=== PATIENT | male | born 1960 | race Caucasian/White ===

== ENCOUNTER → 2024-06-21 | Outpatient (CLI) | payer BC ==
[2024-06-21 13:04] LABS: Appearance,Urine Clear (Clear); Bilirubin,Urine Negative (Negative); Blood,Urine Small (Negative); Color,Urine Light Yellow; Glucose,Urine (UA) Negative (Negative); Ketones,Urine Negative (Negative); Leukocyte Esterase,Urine Small (Negative); Mucus,Urine Rare /hpf; Nitrite,Urine Negative (Negative); Protein,Urine Negative (Negative); RBC,Urine 17 /hpf (0-5); Specific Gravity,Urine 1.016 (1.001-1.035); Squamous Epithelial Cell,Urine 2 /hpf (0-4); Urobilinogen,Urine <2.0 mg/dL (<2.0); WBC,Urine 7 /hpf (0-5)
[2024-06-21 15:18] LABS: Basophils # (A) 0.09 X 10*3/uL (0.00-0.10); Basophils % (A) 1.1 %; Eosinophils # (A) 0.49 X 10*3/uL (0.04-0.35); Eosinophils % (A) 6.2 %; HCT 39.6 % (39.6-50.0); HGB 13.4 g/dL (13.0-17.0); Lymphocytes # (A) 2.66 X 10*3/uL (0.90-5.00); Lymphocytes % (A) 33.6 %; MCH 30.9 pg (27.0-32.0); MCHC 33.8 g/dL (32.0-37.0); MCV 91.2 FL (80.0-97.0); Mean Platelet Volume 8.9 FL (9.5-12.2); Monocytes # (A) 0.58 X 10*3/uL (0.20-1.00); Monocytes % (A) 7.3 %; NRBC Per 100 WBC 0 X 10*3/uL (0.00-0.01); Neutrophils # (A) 4.05 X 10*3/uL (1.80-7.70); Neutrophils % (A) 51.3 %; Platelet Count 366 X 10*3/uL (140-440); RBC 4.34 X 10*6/uL (4.40-5.60); RDW 12.6 % (11.5-14.5); WBC 7.91 X 10*3/uL (4.50-10.00)
[2024-06-21 15:28] LABS: BUN/Creat Ratio 9.44 Ratio (12.00-20.00); Blood Urea Nitrogen 8.5 mg/dL (9.0-27.0); Calcium 9.4 mg/dL (8.7-10.3); Carbon Dioxide 24.6 mmol/L (21.6-31.8); Chloride 106 mmol/L (96-109); Glucose 107 mg/dL (70-110); Potassium 4.3 mmol/L (3.5-5.5); Sodium 141 mmol/L (135-145)
== END | disposition home or self-care (01) ==
LOC: LABPAT 11:37
PROVIDERS: ATTEND Urology
DX: Z01.812 Encounter for preprocedural laboratory examination (principal); N20.0 Calculus of kidney
CPT/HCPCS: 80048; 81001; 85025; 86850; 86900; 86901; 87086

== ENCOUNTER 2024-06-29 07:00 | Day surgery (SDC) | payer BC ==
[2024-06-24 09:59] VITALS: BMI 29.4
--- NOTE | 2024-06-28 10:12 | P.GSHP ---
History of Present Illness H&P Date: 06/28/24 64-year-old gentleman referred via Dr. Kaleb Garcia for a right staghorn calculus. The patient was evaluated and indeed identified with this problem. He was given treatment options including shockwave lithotripsy open surgery referral ureteroscopy or percutaneous nephrostolithotomy the risks and complications of been outlined. He comes for percutaneous nephrostolithotomy on the right side the risks and complications including damage to adjacent organs failure to access the kidney damage to the kidney incomplete stone removal infection bleeding pain to been explained understood and accepted he comes for this procedure. - Constitutional Constitutional: Denies chills, Denies fever - EENT Eyes: denies blurred vision, denies pain Ears, nose, mouth and throat: Denies headache, Denies sore throat - Cardiovascular Cardiovascular: Denies chest pain, Denies shortness of breath - Respiratory Respiratory: Denies cough, Denies 7 - Gastrointestinal Gastrointestinal: Denies abdominal pain, Denies diarrhea, Denies nausea, Denies vomiting - Genitourinary (Female) Genitourinary: Denies dysuria, Denies hematuria - Genitourinary (Male) Genitourinary: Denies dysuria, Denies hematuria - Musculoskeletal Musculoskeletal: Denies myalgias - Integumentary Integumentary: Denies pruritus, Denies rash - Neurological Neurological: Denies numbness, Denies weakness - Psychiatric Psychiatric: Denies anxiety, Denies depression - Endocrine Endocrine: Denies fatigue, Denies weight change Past Medical History Past Medical History: Hypertension, Sleep Apnea/CPAP/BIPAP Additional Past Medical History / Comment(s): Current kidneystone. Hx of episode of dizziness, numbness on right side from top of head to toes, could not feel pain or temperature on that side and elevated BP in Nov 2023, was on 5mg Lisinopril and a water pill, but was recently discontinued; still has numbness of entire right side. CPAP use. History of Any Multi-Drug Resistant Organisms: None Reported Additional Past Surgical History / Comment(s): [place] teeth removed. Additional Past Anesthesia/Blood Transfusion Reaction / Comment(s): Woke up during wisdom teeth extraction in his teens. Smoking Status: Current every day smoker - Past Family History Mother Family Medical History: Cancer Father Family Medical History: Cancer Medications and Allergies Home Medications Medication Instructions Recorded Confirmed Type Aspirin 325 mg PO QAM 06/24/24 06/24/24 History Allergies Allergy/AdvReac Type Severity Reaction Status Date / Time amoxicillin Allergy Dyspnea Verified 06/24/24 09:19 clarithromycin Allergy Dyspnea Verified 06/24/24 09:19 Penicillins Allergy Dyspnea Verified 06/24/24 09:18 Surgical - Exam - General well developed, well nourished, no distress - Eyes normal ocular movement, no icteric - ENT no hearing loss, no congestion - Neck no masses, trachea midline - Respiratory normal respiratory effort, clear to auscultation - Abdomen Abdomen: soft, non tender, no guarding, no rigid, no rebound - Integumentary no rash, no abnormal pigmentation - Neurologic no disoriented, no combative - Psychiatric oriented to time, oriented to person, oriented to place, speech is normal, memory intact Results - Imaging CT scan - abdomen: report reviewed, image reviewed CT scan - pelvis: report reviewed, image reviewed Assessment and Plan Assessment: Impression: Staghorn calculus of right, large, greater than 3 cm Recommendations: Cystoscopy, placement of ureteral catheter, percutaneous nephrostomy, percutaneous nephrostolithotomy right side.
--- NOTE | 2024-06-29 07:29 | XR ---
EXAMINATION TYPE: XR KUB DATE OF EXAM: 06/29/2024 7:18 AM COMPARISON: None CLINICAL INDICATION: Male, 63 years old with history of Right kidney stone.; PHH, pain, preoperative evaluation prior to percutaneous nephrostomy TECHNIQUE: One radiographic view of the abdomen was obtained. FINDINGS: Some external artifacts are present. Vas deferens calcifications on both sides. Large staghorn calcul us on the right measuring 5.1 cm. A few calcifications on the left are much smaller measuring up to 6 mm. Approximately 4 are identified radiographically. Scattered mild stool. Nonobstructive bowel gas pattern. IMPRESSION: 1. Large 5.1 cm staghorn calculus on the right 2. Smaller left-sided nephrolithiasis measuring up to 6 mm. [facility], , 06/29/2024 7:27 AM
[2024-06-29] MEDS: IV FLUID CONTINUATION 1,000 ML IV ONE ×3 (07:44→11:59)
[2024-06-29] MEDS: LACTATED RINGERS 1,000 ML IV SCH (07:55)
[2024-06-29] MEDS: ONDANSETRON 4 MG/2 ML VIAL IVP ONE (07:56)
[2024-06-29] MEDS: DEXAMETHASONE SOD PHOSPHATE 4 MG/ML 1 ML VIAL IV ONE (07:56)
[2024-06-29] MEDS: ceFAZolin 2 GM in DEXTROSE 5% IN WATER 50 ML IVPB PRN (08:28)
[2024-06-29] MEDS: IOHEXOL 350 MG/ML 100 ML in EMPTY BAG 1 BAG IRRIGATION ONE (09:06)
[2024-06-29] MEDS: LACTATED RINGERS 1,000 ML IV ONE (09:22)
[2024-06-29] MEDS ORDERED: NEOSTIGMINE 1 MG/ML 10 ML VIAL ONE (09:23)
[2024-06-29] MEDS ORDERED: WATER FOR INJECTION, STERILE 10 ML VIAL IV ONE (09:23)
[2024-06-29] MEDS ORDERED: ROCURONIUM 10 MG/ML (5 ML VIAL) IV ONE (09:23)
[2024-06-29] MEDS ORDERED: fentaNYL (PF) 50 MCG/ML 2 ML AMP ONE (09:23)
[2024-06-29] MEDS ORDERED: PHENYLEPHRINE-0.9% NACL SYG 1,000 MCG/10 ML SYRINGE ONE (09:23)
[2024-06-29] MEDS ORDERED: ePHEDrine 50 MG/ML 1 ML VIAL ONE (09:23)
[2024-06-29] MEDS ORDERED: MIDAZOLAM 2 MG/2 ML VIAL ONE (09:23)
[2024-06-29] MEDS ORDERED: GLYCOPYRROLATE 0.2 MG/ML 2 ML VIAL ONE (09:23)
[2024-06-29] MEDS ORDERED: LIDOCAINE 4% LTA KIT (4 ML) TOPICAL ONE (09:23)
[2024-06-29] MEDS ORDERED: LIDOCAINE 1% INJ 10MG/ML (20 ML MDV) ONE (09:23)
[2024-06-29] MEDS ORDERED: SUCCINYLCHOLINE CHLORIDE 200 MG/10 ML VIAL IV ONE (09:23)
[2024-06-29] MEDS ORDERED: PROPOFOL 10 MG/ML 20 ML VIAL IV ONE (09:23)
[2024-06-29] MEDS ORDERED: HYDROmorphone (PF) 1 MG/ML ONE (09:23)
[2024-06-29] MEDS ORDERED: ACETAMINOPHEN TAB 325 MG TAB PO PRN (10:59)
[2024-06-29] MEDS ORDERED: NALOXONE 0.4 MG/ML 1 ML VIAL IV PRN (11:01)
--- NOTE | 2024-06-29 11:05 | P.PCN ---
Date of Procedure: 06/29/24 Preoperative Diagnosis: Staghorn calculus right greater than 3 cm Postoperative Diagnosis: Same Procedure(s) Performed: Percutaneous access right kidney Anesthesia: JJ Surgeon: Oleksandr Collins Condition: stable Indications for Procedure: Patient is 63. He has a 5-1/2 cm right renal pelvic stone with multiple satellites. He comes for percutaneous nephrostolithotomy. I will perform percutaneous access to the right kidney Description of Procedure: Patient brought to the operating suite. Given a general anesthetic. He had a cystoscopy and stent placed on the right kidney. He is been placed in the prone position with care Ryan and extremities with a sterile prep. The kidney is seen under fluoroscopy. I injected air through the ureteral catheter to outline the collecting system the only easy access is to an upper pole calyx between the 11th and 12th rib. Appears to be below the lung. A Chiba needle is placed into the upper pole calyx. Through the Chiba needle a [place] mandrel wire is passed into the renal pelvis. Over the wire I then passed a 6 Sammarinese dilating catheter. The inner catheter was removed. The [place] mandrel wire was removed. An 035 wire was passed into the proximal ureter. I advanced the dilating catheter into the proximal ureter. I removed the 035 liver glide and passed an 035 Super Stiff wire down the right ureter. I then over the Super Stiff wire passed an 8 and 10 Sammarinese dilating catheter. The inner catheters removed and I then passed a second wire down the right ureter. Over the Super Stiff wire I then passed the dilating balloon and dilate the collecting system into the upper pole calyx which I advanced a 30 Sammarinese sheath.
--- NOTE | 2024-06-29 11:05 | FL ---
EXAMINATION TYPE: FL Perc Nephrostomy New Access Intraoperative/procedural fluoroscopic services were provided. CLINICAL INDICATION:Male, 63 years old with history of Right Kidney Stone; , [facility] FINDINGS: Fluoroscopic images for right percutaneous nephrostomy. No radiographic evidence for complication. Total fluoroscopy time is 2.13 min. DAP: 20.771 Gycm2 Please see the operative/procedural note for further details. [facility], , 06/29/2024 11:03 AM
--- NOTE | 2024-06-29 11:10 | P.OP ---
Date of Procedure: 06/29/24 Preoperative Diagnosis: Right renal staghorn calculus, greater than 3 cm Postoperative Diagnosis: Same Procedure(s) Performed: Cystoscopy, placement of 5 Bahraini occluding balloon catheter right, percutaneous nephrostomy (Dr. Collins) percutaneous nephrostolithotomy with ultrasound, 12J nephrostomy tube, right Anesthesia: JJ Surgeon: Oleksandr Collins Estimated Blood Loss (ml): 100 Pathology: other (Stone) Condition: stable Disposition: PACU Indications for Procedure: The patient is 63. He has a 5-1/2 cm right renal pelvic stone with calyceal satellites. He comes for a right percutaneous nephrostolithotomy alternatives have been discussed Description of Procedure: Patient brought to the operating suite. He was given a general anesthetic on the transport gurney. Placed in a frog position with a sterile prep and drape. Cystoscopy Foroblique lens and 21 [place]raini sheath identifies a nonobstructing prostate. The right ureteral orifice was identified and intubated with a 5 [place]raini occluding balloon catheter passed up into the right renal pelvis. It was secured to a 16 Bahraini Huerta. The patient is now in prone position with care Ryan and extremities. I performed percutaneous access to the right upper pole. It is dictated separately. He now has a 30 Bahraini sheath in the upper pole calyx. I introduced the rigid nephroscope and remove the clot. The large stone in the renal pelvis is identified. With ultrasound I slowly and tediously ultrasound, fracture and suction the stone out. The larger fragments were removed with grasping forceps. After removal of the stone I then passed the flexible nephroscope throughout the collecting system and remove other small fragments. I passed the scope down the UPJ and identified a couple more stones that are removed. I then fluoroscope the patient and see no remaining stones in the right kidney. 12 Bahraini J nephrostomy tube was placed. It is secured to the skin with 2-0 silk. The right ureteral catheter removed. The patient is awakened and returned recovery in good condition. He will be observed in the hospital postoperatively. A chest x-ray will be obtained since we went through the right upper pole just to make sure we did not caden the pleura. Blood loss was approximately 100 mL.
--- NOTE | 2024-06-29 11:20 | XR ---
EXAMINATION TYPE: XR chest 1V portable DATE OF EXAM: 06/29/2024 11:15 AM COMPARISON: No direct comparisons. TECHNIQUE: XR chest 1V portable Portable AP radiograph of the chest. CLINICAL INDICATION:Male, 63 years old with history of assess right lung for hydro/pneumo thorax s/p pcnl; FINDINGS: Lungs/Pleura: There is no evidence of pleural effusion, focal consolidation, or pneumothorax. Pulmonary vascularity: Mild pulmonary vascular congestion. Heart/mediastinum: Cardiomediastinal silhouette is enlarged. Atherosclerotic calcifications are seen in the aorta. Musculoskeletal: No acute osseous pathology. Other findings: Drainage catheter identified within the right upper quadrant related to known percuta neous nephrostomy tube. IMPRESSION: 1. Cardiomegaly and mild pulmonary vascular congestion. Correlate with BNP for congestive heart fail ure/volume overload. 2. No discrete pneumothorax. [facility], , 06/29/2024 11:17 AM
[2024-06-29] MEDS: HYDROmorphone 0.5 MG/0.5 ML SYRINGE IVP PRN (11:37)
[2024-06-29] MEDS: IPRATROPIUM-ALBUTEROL 3 ML NEB INHALATION PRN (11:39)
[2024-06-29] MEDS: DEXTROSE 5%-0.45% NACL 1,000 ML IV SCH (13:37)
[2024-06-29] MEDS: HYDROmorphone PCA 10 MG/50 ML BAG IV PRN (14:59)
[2024-06-29] MEDS: NICOTINE 21MG/24HR PATCH TRANSDERM SCH (15:53)
[2024-06-29] MEDS: ONDANSETRON 4 MG/2 ML VIAL IVP PRN (19:50)
--- NOTE | 2024-06-29 20:35 | XR ---
EXAMINATION TYPE: XR chest 1V portable DATE OF EXAM: 06/29/2024 8:20 PM COMPARISON: Chest radiographs from 06/29/2024. CLINICAL INDICATION: Male, 63 years old with history of SOB; TECHNIQUE: XR chest 1V portable Frontal view of the chest. FINDINGS: Lungs/Pleura: There may be trace right pneumothorax. There is no evidence of pleural effusion, focal consolidation, or left pneumothorax. Pulmonary vascularity: Unremarkable. Heart/mediastinum: Cardiomediastinal silhouette is unremarkable. Musculoskeletal: No acute osseous pathology. IMPRESSION: Visceral pleural line on the right thought to be present. Findings suggest trace right pneumothorax. Consider CT chest or expiratory left lateral decubitus views for confirmation. [facility], , 06/29/2024 8:33 PM
--- NOTE | 2024-06-29 21:58 | XR ---
EXAMINATION TYPE: XR chest 1V DATE OF EXAM: 06/29/2024 9:44 PM COMPARISON: Chest radiographs from 06/29/2024. CLINICAL INDICATION: Male, 63 years old with history of Pneumothoarax; TECHNIQUE: XR chest 1V Frontal view of the chest. FINDINGS: Lungs/Pleura: Visceral pleural line confirmed on the right. There is no evidence of pleural effusion, focal consolidation, or left pneumothorax. Pulmonary vascularity: Unremarkable. Heart/mediastinum: Cardiomediastinal silhouette is unremarkable. Musculoskeletal: No acute osseous pathology. Other findings: None IMPRESSION: Trace right pneumothorax confirmed. [facility], , 06/29/2024 9:56 PM
[2024-06-29] MEDS: ALPRAZolam 0.25 MG TAB PO STA (23:03)
[2024-06-30] MEDS: MAG HYDROX/AL HYDROX/SIMETH 30 ML CUP PO PRN (01:26)
[2024-06-30] MEDS ORDERED: HYDROmorphone 2 MG/ML 1 ML SYRINGE IVP PRN (07:55)
[2024-06-30] MEDS: HYDROcodone/APAP 5-325MG 1 EACH TAB PO PRN (08:35)
--- NOTE | 2024-06-30 11:57 | P.PN ---
Subjective Progress Note Date: 06/30/24 Chest x-ray showed trace pneumothorax, he is maintaining his saturation, is having pain with inspiration and some shortness of breath. Of note he was previously on Lasix, but recently discontinued it Objective - Vital Signs Vital signs: Vital Signs Temp 97.4 F L 06/30/24 07:42 Pulse 101 H 06/30/24 07:42 Resp 14 06/30/24 02:00 BP 136/71 06/30/24 07:42 Pulse Ox 93 L 06/30/24 07:42 FiO2 Intake & Output 06/29/24 06/30/24 06/30/24 18:59 06:59 18:59 Intake Total 2551 1620 600 Output Total 950 1400 700 Balance 1601 220 -100 Weight 93 kg Intake: IV 2051 Intake, IV Titration 500 600 Amount Dextrose 5%-0.45% NaCl 1, 600 000 ml @ 100 mls/hr IV . Q10H [facility] Rx#:[id number] IV Fluid Continuation 1, 500 000 ml @ 0 mls/hr IV .[facility] Rx#:[id number] Oral 1620 Output: Drainage 400 1000 Right Back 400 1000 Urine 400 400 700 Uretheral (Huerta) 350 Estimated Blood Loss 150 Other: Voiding Method Indwelling Catheter Indwelling Catheter Indwelling Catheter - Constitutional General appearance: Present: no acute distress - Gastrointestinal General gastrointestinal: Present: soft. Absent: distended, tenderness Assessment and Plan Assessment: 63-year-old male status post right PCNL by Dr. Collins, is having postoperative pain, chest x-ray showing trace pneumothorax. Will consult the hospitalist for medical management Repeat chest x-ray, if there is progression of the pneumothorax then we will obtain a pulmonary consult Will discontinue the [employer] and switch to IV, p.o. pain medications Huerta will be removed
--- NOTE | 2024-06-30 12:45 | XR ---
EXAMINATION TYPE: XR chest 2V DATE OF EXAM: 06/30/2024 12:36 PM COMPARISON: Chest radiographs from 06/29/2024 TECHNIQUE: XR chest 2V Frontal and lateral views of the chest. CLINICAL INDICATION:Male, 63 years old with history of Pneumothorax; FINDINGS: Lungs/Pleura: No focal consolidation. Small right pleural effusion. No sizable pneumothorax identifie d. Pulmonary vascularity: Unremarkable. Heart/mediastinum: Cardiomediastinal silhouette is unremarkable. Musculoskeletal: No acute osseous pathology. Other findings: None Lines/Tubes: Right percutaneous nephrostomy tube redemonstrated. IMPRESSION: 1. No sizable pneumothorax identified. 2. Small right pleural effusion. [facility], , 06/30/2024 12:43 PM
--- NOTE | 2024-06-30 16:45 | P.CONS ---
History of Present Illness - Reason for Consult Consult date: 06/30/24 - History of Present Illness 63 year old M with PMH of right staghorn calculi, 80 pack year smoking history presents [facility] for elective surgery. He underwent percutaneous access of the right kidney, cystoscopy, percutaneous nephrostomy, percutaneous nephrostolithotomy with ultrasound and placement of a nephrostomy tube under general anesthesia with Dr. Collins on 06/29. His hospital course was complicated with pleuritic chest pain and shortness of breath that developed post-operatively. CXR done on 06/29 at 20:35 showed trace right PTX. [facility] Phys[facility] consulted for medical management of this patient. 06/30 Patient was seen and examined. He reports improvement in his pleuritic chest pain. He is currently 94% on RA. No labs are done today. CXR done today shows no PTX. General: no distress Derm: warm, dry Head: atraumatic, normocephalic, symmetric Mouth: no lip lesion, mucus membranes moist Cardiovascular: S1S2 tachy, no murmur Lungs: Decreased BS bilaterally, no rales, no accessory muscle use Ext: no gross muscle atrophy, no edema, no contractures Neuro: No focal neurologic deficits. Psych: Alert and oriented. Based on my assessment of this patient, this patient meets a high complexity level of care. Pneumothorax: Likely barotrauma from general anesthesia with history of COPD. CXR done today shows no sizable PTX. Telemetry monitoring. Supplemental O2 to maintain O2 sat > 92%. DC incentive spirometer for now. Repeat CXR in the AM. Consult Pulmonary. History of COPD: Not in acute exacerbation. DuoNeb PRN SOB/wheezing. Nicotine dependence: Nicotine patch 21 mg/24H TRANSDERM daily. Advised to quit. CODE STATUS: FULL CODE. DVT Prophylaxis: SCD GI Prophylaxis: Designated medical POA if patient is not able to make medical decisions for themselves: I have reviewed the following sql server consultant notes: Urology note. I have reviewed the results of the following tests: I have ordered the following tests: CXR, CBC, CMP in the AM. I have discussed the care of this patient with the following independent historian: . I have independently interpreted the following test below: CXR. I have discussed the management of this patient with the following physician: Past Medical History Past Medical History: Hypertension, Sleep Apnea/CPAP/BIPAP Additional Past Medical History / Comment(s): Current kidneystone. Hx of episode of dizziness, numbness on right side from top of head to toes, could not feel pain or temperature on that side and elevated BP in Nov 2023, was on 5mg Lisinopril and a water pill, but was recently discontinued; still has numbness of entire right side. CPAP use. History of Any Multi-Drug Resistant Organisms: None Reported Additional Past Surgical History / Comment(s): [place] teeth removed. Additional Past Anesthesia/Blood Transfusion Reaction / Comm: Woke up during wisdom teeth extraction in his teens. Smoking Status: Current every day smoker - Past Family History Mother Family Medical History: Cancer Father Family Medical History: Cancer Medications and Allergies Home Medications Medication Instructions Recorded Confirmed Type Aspirin 325 mg PO QAM 06/24/24 06/29/24 History Allergies Allergy/AdvReac Type Severity Reaction Status Date / Time amoxicillin Allergy Dyspnea Verified 06/29/24 07:25 clarithromycin Allergy Dyspnea Verified 06/29/24 07:25 Penicillins Allergy Dyspnea Verified 06/29/24 07:25 Physical Exam Vitals: Vital Signs Temp Pulse Resp BP BP Pulse Ox 06/30/24 13:25 98.6 F 107 H 109/70 94 L 06/30/24 07:42 97.4 F L 101 H 136/71 93 L 06/30/24 02:00 97.7 F 92 14 156/79 156/79 93 L 06/29/24 22:45 133/83 93 L 06/29/24 20:00 97.5 F L 80 12 134/78 95 Intake and Output 06/30/24 06/30/24 06/30/24 06:59 14:59 22:59 Intake Total 1620 840 Output Total 1400 900 Balance 220 -60 Intake: Intake, IV Titration 600 Amount Dextrose 5%-0.45% NaCl 1, 600 000 ml @ 100 mls/hr IV . Q10H [facility] Rx#:[id number] Oral 1620 240 Output: Drainage 1000 200 Right Back 1000 200 Urine 400 700 Uretheral (Huerta) 350 Other: Voiding Method Indwelling Catheter
[2024-06-30] MEDS: ALPRAZolam 0.5 MG TAB PO PRN (21:49)
[2024-07-01] MEDS: MELATONIN 5 MG TABLET PO PRN (03:05)
[2024-07-01 07:35] VITALS: BP 127/77; PULSE 83; RESP 12; TEMP 98
--- NOTE | 2024-07-01 08:02 | XR ---
EXAMINATION TYPE: XR chest 1V portable DATE OF EXAM: 07/01/2024 7:08 AM COMPARISON: Chest radiographs from 06/30/2024 TECHNIQUE: XR chest 1V portable Portable AP radiograph of the chest. CLINICAL INDICATION:Male, 63 years old with history of PTX; FINDINGS: Lungs/Pleura: No sizable pleural effusion. No focal consolidation. Trace right apical pneumothorax Pulmonary vascularity: Unremarkable. Heart/mediastinum: Cardiomediastinal silhouette is unremarkable. Atherosclerotic calcifications are seen in the aorta. Musculoskeletal: No acute osseous pathology. Other findings: None Lines/Tubes: Right percutaneous nephrostomy tube redemonstrated. IMPRESSION: Trace apical pneumothorax. [facility], , 07/01/2024 8:00 AM
[2024-07-01 08:16] LABS: HCT 34.5 % (39.6-50.0); HGB 11.4 g/dL (13.0-17.0); MCH 31.2 pg (27.0-32.0); MCV 94.5 FL (80.0-97.0); NRBC Per 100 WBC 0 X 10*3/uL (0.00-0.01); Platelet Count 289 X 10*3/uL (140-440); RBC 3.65 X 10*6/uL (4.40-5.60); RDW 13.4 % (11.5-14.5); WBC 13.44 X 10*3/uL (4.50-10.00)
[2024-07-01 08:29] LABS: BUN/Creat Ratio 14.57 Ratio (12.00-20.00); Blood Urea Nitrogen 10.2 mg/dL (9.0-27.0); Glucose 118 mg/dL (70-110)
[2024-07-01 08:30] LABS: ALT 27 U/L (10-49); AST 24 U/L (14-35); Albumin 3.9 g/dL (3.8-4.9); Albumin/Globulin Ratio 1.62 Ratio (1.60-3.17); Alkaline Phosphatase 71 U/L (41-126); Calcium 8.6 mg/dL (8.7-10.3); Carbon Dioxide 23.7 mmol/L (21.6-31.8); Chloride 103 mmol/L (96-109); Globulin 2.4 g/dL (1.6-3.3); Potassium 3.9 mmol/L (3.5-5.5); Sodium 136 mmol/L (135-145); Total Bilirubin 0.5 mg/dL (0.3-1.2); Total Protein 6.3 g/dL (6.2-8.2)
--- NOTE | 2024-07-01 11:45 | P.CNPUL ---
History of Present Illness Consult date: 07/01/24 Requesting physician: Oleksandr Collins Reason for consult: pneumothorax, abnormal CXR/CT Chief complaint: Right staghorn calculus History of present illness: This is a 63-year-old male patient with a known history of hypertension, obstructive sleep apnea maintained on CPAP chronic tobacco dependence who was found to have a right staghorn calculus and was referred to Dr. Collins. He was brought in on 06/29/2024 for a cystoscopy, placement of a 5 [place] occluding balloon catheter right, percutaneous nephrostomy, percutaneous nephrostolilithotomy with ultrasound on the right. 12J nephrostomy tube placement. Follow-up chest x-ray revealed a tiny right apical pneumothorax and we are consulted for the same. Today's chest x-ray shows a trace apical pneumothorax. Right percutaneous nephrostomy tube in place. White count 13.4. Hemoglobin 11.4. Platelets 289. Sodium 136. Potassium 3.9. Bicarb 24. BUN 10. Creatinine 0.7. Glucose 118. He is seen today in consultation on the regular medical floor. He is sitting up in a chair having breakfast. He denies any shortness of breath, cough or congestion. No fever or chills. He is maintaining good O2 saturations in the 90s on room air. He has been afebrile. Hemodynamically stable. Review of Systems REVIEW OF SYSTEMS: CONSTITUTIONAL: Denies any recent significant weight loss or weight gain. EYES: Denies change in vision. EARS, NOSE, MOUTH, THROAT: Denies headaches, denies sore throat. CARDIOVASCULAR: Denies chest pain, palpitations or syncopal episodes. RESPIRATORY: Denies shortness of breath, cough, congestion or hemoptysis. GASTROINTESTINAL: Denies change in appetite, denies abdominal pain GENITOURINARY: Denies hematuria, denies infections. MUSKULOSKELETAL: Denies pain, denies swelling. INTEGUMENTARY: Denies rash, denies eczema. NEUROLOGICAL: Denies recent memory loss, no recent seizure activity. PSYCHIATRIC: Denies anxiety, denies depression. HEMATOLOGIC/LYMPHATIC: Denies anemia, denies enlarged lymph nodes. Past Medical History Past Medical History: Hypertension, Sleep Apnea/CPAP/BIPAP Additional Past Medical History / Comment(s): Current kidneystone. Hx of episode of dizziness, numbness on right side from top of head to toes, could not feel pain or temperature on that side and elevated BP in Nov 2023, was on 5mg Lisinopril and a water pill, but was recently discontinued; still has numbness of entire right side. CPAP use. History of Any Multi-Drug Resistant Organisms: None Reported Additional Past Surgical History / Comment(s): [place] teeth removed. Additional Past Anesthesia/Blood Transfusion Reaction / Comment(s): Woke up during wisdom teeth extraction in his teens. Smoking Status: Current every day smoker - Past Family History Mother Family Medical History: Cancer Father Family Medical History: Cancer Medications and Allergies Home Medications Medication Instructions Recorded Confirmed Type Aspirin 325 mg PO QAM 06/24/24 06/29/24 History ALPRAZolam [Xanax] 0.5 mg PO HS PRN #7 tab 07/01/24 Rx HYDROcodone/APAP 5-325MG [[place] 1 tab PO Q4HR PRN 3 Days #18 tab 07/01/24 Rx 5-325] Allergies Allergy/AdvReac Type Severity Reaction Status Date / Time amoxicillin Allergy Dyspnea Verified 06/29/24 07:25 clarithromycin Allergy Dyspnea Verified 06/29/24 07:25 Penicillins Allergy Dyspnea Verified 06/29/24 07:25 Physical Exam Vitals: Vital Signs Temp Pulse Resp BP BP Pulse Ox 07/01/24 07:33 98.0 F 83 12 127/77 94 L 07/01/24 01:41 98.5 F 96 14 123/78 93 L 06/30/24 19:54 98.1 F 111 H 12 130/77 93 L 06/30/24 13:25 98.6 F 107 H 109/70 94 L Intake and Output 06/30/24 07/01/24 07/01/24 22:59 06:59 14:59 Intake Total 1780 1080 Output Total 950 300 Balance 830 780 Intake: Intake, IV Titration 1200 Amount Dextrose 5%-0.45% NaCl 1, 1200 000 ml @ 100 mls/hr IV . Q10H [facility] Rx#:[id number] Oral 580 1080 Output: Drainage 450 300 Right Back 450 300 Urine 500 Other: Voiding Method Urinal Urinal # Voids 1 GENERAL EXAM: Alert, active, 63-year-old male, on room air oxygen, comfortable in no apparent distress. HEAD: Normocephalic. EYES: Normal reaction of pupils, equal size. NOSE: Clear with pink turbinates. THROAT: No erythema or exudates. NECK: No masses, no JVD. CHEST: No chest wall deformity. Right nephrostomy tube secured in place LUNGS: Equal air entry with no crackles, wheeze, rhonchi or dullness. CVS: S1 and S2 normal with no audible murmur, regular rhythm. ABDOMEN: No hepatosplenomegaly, normal bowel sounds, no guarding or rigidity. SPINE: No scoliosis or deformity SKIN: No rashes CENTRAL NERVOUS SYSTEM: No focal deficits, tone is normal in all 4 extremities. EXTREMITIES: There is no peripheral edema. No clubbing, no cyanosis. Peripheral pulses are intact. Results - Laboratory Findings CBC and BMP: 07/01/24 04:34 07/01/24 04:34 Abnormal lab findings: Abnormal Labs 07/01/24 07/01/24 04:34 04:34 WBC 13.44 H RBC 3.65 L Hgb 11.4 L Hct 34.5 L MPV 9.0 L Glucose 118 H Calcium 8.6 L - Diagnostic Findings Chest x-ray: image reviewed Assessment and Plan Assessment: Right renal staghorn calculus greater than 30 cm. Status post percutaneous nephrostomy, percutaneous nephro slowly lithotomy with ultrasound, 12J percutaneous nephrostomy tube placement, postoperative day #2 Tiny right apical pneumothorax, iatrogenic Chronic and ongoing tobacco dependence Chronic obstructive pulmonary disease Obstructive sleep apnea maintained on CPAP Hypertension Plan: The patient was seen and evaluated Chest x-rays, labs and medications reviewed Tiny right apical pneumothorax Stable and on room air oxygen Educated regarding complete smoking cessation Cleared for discharge from the pulmonary standpoint Follow-up closely with his program manager rn in the [place] area Avoid utilizing his CPAP until seen in follow-up Plan of care discussed with the patient and his who is present I have personally seen and examined the patient, performed the documentation and the assessment and plan as written. Number of minutes spent on the visit: 20 Dictation was produced using [employer] dictation software. Please excuse any grammatical, word or spelling errors. Time with Patient: Greater than 30
--- NOTE | 2024-07-01 12:07 | P.PN ---
Subjective Progress Note Date: 07/01/24 63 year old M with PMH of right staghorn calculi, 80 pack year smoking history presents to [facility] for elective surgery. He underwent percutaneous access of the right kidney, cystoscopy, percutaneous nephrostomy, percutaneous nephrostolithotomy with ultrasound and placement of a nephrostomy tube under general anesthesia with Dr. Collins on 06/29. His hospital course was complicated with pleuritic chest pain and shortness of breath that developed post-operatively. CXR done on 06/29 at 20:35 showed trace right PTX. [facility] consulted for medical management of this patient. 06/30 Patient was seen and examined. He reports improvement in his pleuritic chest pain. He is currently 94% on RA. No labs are done today. CXR done today shows no PTX. 07/01 Patient was seen and examined. Chest pain resolved. Abdominal pain from surgery improving. He is 94% on RA. Pulmonary recommends outpatient follow up. CXR done today shows small apical PTX. CBC and CMP significant for WBC 13.44, RBC 3.65, Hg 11.4, Hct 34.5, glu 118, Ca 8.6. General: no distress Derm: warm, dry Head: atraumatic, normocephalic, symmetric Mouth: no lip lesion, mucus membranes moist Cardiovascular: S1S2 reg, no murmur Lungs: Decreased BS bilaterally, no rales, no accessory muscle use Ext: no gross muscle atrophy, no edema, no contractures Neuro: No focal neurologic deficits. Psych: Alert and oriented. Based on my assessment of this patient, this patient meets a high complexity level of care. Pneumothorax: Likely barotrauma from general anesthesia with history of COPD. CXR done today shows no small apical PTX. Telemetry monitoring. Supplemental O2 to maintain O2 sat > 92%. DC incentive spirometer. Pulmonary on board. History of COPD: Not in acute exacerbation. DuoNeb PRN SOB/wheezing. Nicotine dependence: Nicotine patch 21 mg/24H TRANSDERM daily. Advised to quit. CODE STATUS: FULL CODE. DVT Prophylaxis: SCD GI Prophylaxis: Designated medical POA if patient is not able to make medical decisions for themselves: I have reviewed the following hr shared services consultant notes: Pulmonary note. I have reviewed the results of the following tests: CBC, CMP. I have ordered the following tests: I have discussed the care of this patient with the following independent historian: . RN. I have independently interpreted the following test below: CXR. I have discussed the management of this patient with the following physician: Objective - Vital Signs Vital signs: Vital Signs Temp 98.0 F 07/01/24 07:33 Pulse 83 07/01/24 07:33 Resp 12 07/01/24 07:33 BP 127/77 07/01/24 07:33 Pulse Ox 94 L 07/01/24 07:33 FiO2 Intake & Output 06/30/24 07/01/24 07/01/24 18:59 06:59 18:59 Intake Total 2620 1080 Output Total 900 1250 Balance 1720 -170 Intake: Intake, IV Titration 1800 Amount Dextrose 5%-0.45% NaCl 1, 1800 000 ml @ 100 mls/hr IV . Q10H [facility] Rx#:[id number] Oral 820 1080 Output: Drainage 200 750 Right Back 200 750 Urine 700 500 Uretheral (Huerta) 350 Other: Voiding Method Indwelling Catheter Urinal Urinal # Voids 1 - Labs CBC & Chem 7: 07/01/24 04:34 07/01/24 04:34 Labs: Abnormal Lab Results - Last 24 Hours (Table) 07/01/24 07/01/24 Range/Units 04:34 04:34 WBC 13.44 H (4.50-10.00) X 10*3/uL RBC 3.65 L (4.40-5.60) X 10*6/uL Hgb 11.4 L (13.0-17.0) g/dL Hct 34.5 L (39.6-50.0) % MPV 9.0 L (9.5-12.2) FL Glucose 118 H (70-110) mg/dL Calcium 8.6 L (8.7-10.3) mg/dL
--- NOTE | 2024-07-01 21:48 | P.DS ---
Providers Attending physician: Oleksandr Collins Consults: 06/30/24 07:55 Consult Physician Routine Consulting Provider: Annalisa Waterman Consult Reason/Comments: medical management Do you want consulting provider notified?: Yes 06/30/24 14:09 Consult Physician Routine Consulting Provider: Vince Hanna Consult Reason/Comments: PTX seen on 06/29 CXR Do you want consulting provider notified?: Yes Primary care physician: Stated None Hospital Course: This is a 63-year-old male with history of right-sided renal stone, status post right PCNL by Dr. Reyes, please see op note dated 06/29 for surgery details. Patient developed shortness of breath on postop day #0, chest x-ray was obtained which showed evidence of a small pneumothorax, subsequent follow-up x-ray showed no evidence of pneumothorax, on postop day #2 there was complete resolution of the pneumothorax. Pulmonary services was consulted which recommended no further intervention for these findings. Patient was discharged home with the nephrostomy tube and postop day #2, at time of discharge he was tolerating a diet, ambulating, pain was controlled Plan - Discharge Summary Discharge Rx Participant: Yes New Discharge Prescriptions: New HYDROcodone/APAP 5-325MG [[place] 5-325] 1 tab PO Q4HR PRN 3 Days #18 tab PRN Reason: Pain ALPRAZolam [Xanax] 0.5 mg PO HS PRN #7 tab PRN Reason: Anxiety No Action Aspirin 325 mg PO QAM Discharge Medication List Aspirin 325 mg PO QAM 06/24/24 [History] ALPRAZolam [Xanax] 0.5 mg PO HS PRN #7 tab 07/01/24 [Rx] HYDROcodone/APAP 5-325MG [[place] 5-325] 1 tab PO Q4HR PRN 3 Days #18 tab 07/01/24 [Rx] Follow up Appointment(s)/Referral(s): Oleskandr Collins MD [STAFF PHYSICIAN] - 07/04/24 9:40 am Patient Instructions/Handouts: Hydrocodone/Acetaminophen (By mouth), Alprazolam (By mouth), How to Stop Smoking (DC), Kidney Stones (DC), Nephrostomy Tube Care (DC) Activity/Diet/Wound Care/Special Instructions: Stop Smoking Increase ambulation as tolerated Patient to keep surgical dressing intact until follow-up with Dr. Collins on Thursday. Patient encouraged to follow-up with his Pulmonary(Lung)doctor following discharge. Discharge Disposition: HOME SELF-CARE
== END 2024-07-01 11:23 | disposition home or self-care (01) ==
LOC: OR 07:00 → 5NMEDONC 11:02 → OR 07-01 11:23
PROVIDERS: ATTEND Urology
DX: N20.0 Calculus of kidney (principal); J44.9 Chronic obstructive pulmonary disease, unspecified; I50.9 Heart failure, unspecified; I11.0 Hypertensive heart disease with heart failure; G47.33 Obstructive sleep apnea (adult) (pediatric); Z88.0 Allergy status to penicillin; Z79.82 Long term (current) use of aspirin
CPT/HCPCS: 80053; 85027; 82365; 50432; 71045 ×2; 71046; 74018; 52005; 50081; C1769 ×3; C2628; C1729 ×2; C1894; S4990; J1100; J0690; J2405; Q9967; J1171 ×2

== ENCOUNTER 2024-07-04 10:28 | Inpatient (IN) | payer BC ==
[2024-07-04] MEDS: HYDROmorphone 1 MG/ML 1 ML SYRINGE IVP STA (11:21)
--- NOTE | 2024-07-04 11:28 | XR ---
EXAMINATION TYPE: XR chest 2V DATE OF EXAM: 07/04/2024 11:04 AM COMPARISON: Chest radiographs from 07/01/2024 CLINICAL INDICATION: Male, 63 years old with history of Shortness of breath; [facility] TECHNIQUE: XR chest 2V Frontal and lateral views of the chest. FINDINGS: Lungs/Pleura: Low lung volumes are present. There is no evidence of pleural effusion, focal consolida tion, or pneumothorax. Pulmonary vascularity: Unremarkable. Heart/mediastinum: Cardiomediastinal silhouette is unremarkable. Musculoskeletal: No acute osseous pathology. IMPRESSION: Low lung volumes with a generalized hazy appearance which could represent atelectasis versus pulmonar y edema correlate with serum BNP. [facility], , 07/04/2024 11:25 AM
[2024-07-04 11:36] LABS: Basophils # (A) 0.11 10*3/uL (0.00-0.10); Eosinophils # (A) 0.73 10*3/uL (0.04-0.35); Eosinophils % (A) 6.9 %; HCT 37.7 % (39.6-50.0); HGB 13.2 g/dL (13.0-17.0); Lymphocytes # (A) 2.85 10*3/uL (0.90-5.00); Lymphocytes % (A) 26.9 %; MCH 31.5 pg (27.0-32.0); Mean Platelet Volume 8.5 fL (9.5-12.2); Monocytes # (A) 1.11 10*3/uL (0.20-1.00); Monocytes % (A) 10.5 %; Neutrophils # (A) 5.74 10*3/uL (1.80-7.70); Neutrophils % (A) 54.2 %; Platelet Count 427 10*3/uL (140-440); RBC 4.19 10*6/uL (4.40-5.60); RDW 12.6 % (11.5-14.5); WBC 10.59 10*3/uL (4.50-10.00)
[2024-07-04 11:38] LABS: ALT 26 U/L (4-49); AST 24 U/L (17-59); African American GFR (CKD) >90 (>60 ml/min/1.73 sqM); Albumin 4.2 g/dL (3.5-5.0); Alkaline Phosphatase 61 U/L (38-126); Anion Gap 10 mmol/L; Blood Urea Nitrogen 12 mg/dL (9-20); Calcium 9.7 mg/dL (8.4-10.2); Carbon Dioxide 27 mmol/L (22-30); Chloride 104 mmol/L (98-107); Glucose 86 mg/dL (74-99); Non-African American GFR(CKD) >90 (>60 ml/min/1.73 sqM); Potassium 4.3 mmol/L (3.5-5.1); Sodium 141 mmol/L (137-145); Total Bilirubin 0.6 mg/dL (0.2-1.3); Total Protein 7.1 g/dL (6.3-8.2)
[2024-07-04 11:45] LABS: INR 0.8 (<1.2); Partial Thromboplastin Time 24.6 sec (22.0-30.0); Prothrombin Time 9.7 sec (10.0-12.5)
[2024-07-04] MEDS: HYDROmorphone 0.5 MG/0.5 ML SYRINGE IVP STA (12:12)
--- NOTE | 2024-07-04 12:26 | CT ---
EXAMINATION TYPE: CT chest wo con DATE OF EXAM: 07/04/2024 11:59 AM COMPARISON: Chest radiograph from same day. CLINICAL INDICATION: Male, 63 years old with history of SOB pneumothorax, recent nephrostomy; PHH, r ecent nephrostomy, sob, pneumothorax TECHNIQUE: Multiple axial images were obtained through the chest. Sagittal and coronal reformats were created for review. MIP was performed on a separate workstation. Contrast used: mL of (None if empty) Oral contrast used: (None if empty) CT DLP: 351.8 mGycm, Automated exposure control for dose reduction was used. FINDINGS: LUNGS/ PLEURA: Right lower lobe airspace opacities superimposed on streaky atelectasis. Few scattered scattered groundglass opacities there are seen throughout the lungs similar peripheral-based. Trace right pleural effusion and a left pleural effusion. No pneumothorax. AIRWAY: Patent and unremarkable. HEART: Size within normal limits. Moderate coronary artery calcifications present. MEDIASTINUM: No gross evidence of adenopathy. VASCULATURE: No aortic aneurysm. MUSCULOSKELETAL: Moderate disc degeneration changes are present throughout the thoracolumbar spine se condary to osteophyte formation and facet joint arthropathy. SOFT TISSUES/LYMPH NODES: Unremarkable. LOWER NECK: No significant findings. UPPER ABDOMEN: 3 mm nonobstructing right renal calculus. IMPRESSION: 1. Right basilar atelectasis with airspace opacities correlate for superimposed infection. Correlate for aspiration. 2. Trace right pleural effusion. 3. Scattered groundglass opacities at the lungs correlate for atypical pneumonia. Correlate with ser um BNP to exclude underlying pulmonary vascular congestion. 4. No evidence for pneumothorax. Follow up recommendations for incidental pulmonary nodules, if there are any, are per [employer] [employer] or [employer]. https://radiopaedia.org/articles/ngkkqtezgk-gesxkdo-ilapalcza-gsrxwl-[email or web address]?lang=us [facility], , 07/04/2024 12:24 PM
--- NOTE | 2024-07-04 13:12 | ED ---
General Adult HPI - General Chief complaint: Shortness of Breath Stated complaint: SOB Time Seen by Provider: 07/04/24 10:32 Source: patient, RN notes reviewed Mode of arrival: ambulatory Limitations: no limitations - History of Present Illness Initial comments: 63-year-old male presents emergency department from urology's office chief complaint of flank pain, dyspnea. Patient had staghorn calculus with percutaneous nephrostomy tube that was removed today patient did have recent small pneumothorax from this procedure but was resolving. After nephrostomy tube was removed patient had discomfort and dyspnea. Patient was sent over for evaluation. Patient does have a history of COPD continues to smoke. Patient has pain with deep inspiration denies any abdominal complaints. Patient states that he was on Luttrell states that he did take Luttrell today. - Related Data Home Medications Medication Instructions Recorded Confirmed Aspirin 325 mg PO QAM 06/24/24 06/29/24 Previous Rx's Medication Instructions Recorded ALPRAZolam [Xanax] 0.5 mg PO HS PRN #7 tab 07/01/24 HYDROcodone/APAP 5-325MG [[place] 1 tab PO Q4HR PRN 3 Days #18 tab 07/01/24 5-325] Ketorolac [Toradol] 10 mg PO Q8HR #15 tab 07/04/24 Allergies Allergy/AdvReac Type Severity Reaction Status Date / Time amoxicillin Allergy Dyspnea Verified 07/04/24 10:34 clarithromycin Allergy Dyspnea Verified 07/04/24 10:34 Penicillins Allergy Dyspnea Verified 07/04/24 10:34 Review of Systems ROS Statement: Those systems with pertinent positive or pertinent negative responses have been documented in the HPI. ROS Other: All systems not noted in ROS Statement are negative. Past Medical History Past Medical History: COPD Additional Past Medical History / Comment(s): Kidney stone History of Any Multi-Drug Resistant Organisms: None Reported Additional Past Surgical History / Comment(s): Kidney stones. Past Psychological History: No Psychological Hx Reported Smoking Status: Current every day smoker Past Alcohol Use History: None Reported Past Drug Use History: None Reported General Exam Limitations: no limitations General appearance: alert, in no apparent distress Head exam: Present: atraumatic, normocephalic, normal inspection Eye exam: Present: normal appearance, PERRL, EOMI. Absent: scleral icterus, conjunctival injection, periorbital swelling ENT exam: Present: normal exam, mucous membranes moist Neck exam: Present: normal inspection. Absent: tenderness, meningismus, lymphadenopathy Respiratory exam: Present: wheezes, decreased breath sounds. Absent: normal lung sounds bilaterally, respiratory distress, rales, rhonchi, stridor Cardiovascular Exam: Present: regular rate, normal rhythm, normal heart sounds. Absent: systolic murmur, diastolic murmur, rubs, gallop, clicks GI/Abdominal exam: Present: soft, normal bowel sounds. Absent: distended, tenderness, guarding, rebound, rigid Back exam: Present: tenderness, CVA tenderness (R). Absent: CVA tenderness (L) Course Vital Signs 07/04/24 07/04/24 07/04/24 10:32 11:11 12:11 Temperature 97.8 F Pulse Rate 79 82 78 Respiratory 20 26 H 22 Rate Blood Pressure 169/95 175/108 158/86 O2 Sat by Pulse 92 L 97 97 Oximetry 07/04/24 07/04/24 13:06 13:23 Temperature Pulse Rate 87 108 H Respiratory 20 26 H Rate Blood Pressure 135/96 O2 Sat by Pulse 97 76 L Oximetry EKG Findings - EKG Comments: EKG Findings:: . EKG performed at 10: 44 sinus rhythm rate of 88 NE 170 QRS 79 QT/QTc 335/375 - EKG Results: EKG: interpreted by ERICK Medical Decision Making - Medical Decision Making Was pt. sent in by a medical professional or institution (, PA, SOFTWARE SUPPORT TECHNICIAN, urgent care, hospital, or care home...) When possible be specific @ -Dr. headley urology Did you speak to anyone other than the patient for history (EMS, parent, family, police, friend...)? What history was obtained from this source @ -No Did you review nursing and triage notes (agree or disagree)? Why? @ -I reviewed and agree with nursing and triage notes Were old charts reviewed (outside hosp., previous admission, EMS record, old EKG, old radiological studies, urgent care reports/EKG's, care home records)? Report findings @ -No old charts were reviewed Differential Diagnosis (chest pain, altered mental status, abdominal pain women, abdominal pain men, vaginal bleeding, weakness, fever, dyspnea, syncope, headache, dizziness, GI bleed, back pain, seizure, CVA, palpatations, mental health, musculoskeletal)? @ -Differential Dyspnea: Coronary syndrome, arrhythmia, tamponade, asthma, COPD, pulmonary embolism, pneumonia, pneumothorax, pulmonary effusion, anaphylaxis, diabetic ketoacidosis, flailed chest, pulmonary contusion, diaphragmatic rupture, anemia, neuromuscular, this is not meant to be an all-inclusive list. EKG interpreted by me (3pts min.). @ -As above X-rays interpreted by me (1pt min.). @ -Chest x-ray shows patchy atelectasis possible atypical versus pulmonary ovrload CT interpreted by me (1pt min.). @ -CT chest without contrast, there is atelectasis type changes minimal pleural effusion U/S interpreted by me (1pt. min.). @ -None done What testing was considered but not performed or refused? (CT, X-rays, U/S, labs)? Why? @ -None What meds were considered but not given or refused? Why? @ -None Did you discuss the management of the patient with other professionals (professionals i.e. , PA, SOFTWARE SUPPORT TECHNICIAN, lab, RT, psych nurse, social service worker, steel spar operator, teacher, campus police officer, case planner)? Give summary @ -Dr. Snyder for admission Was smoking cessation discussed for >3mins.? @ -No Was critical care preformed (if so, how long)? @ -No Were there social determinants of health that impacted care today? How? (Homeles sness, low income, unemployed, alcoholism, drug addiction, transportation, low edu. Level, literacy, decrease access to med. care, custodial, rehab)? @ -No Was there de-escalation of care discussed even if they declined (Discuss DNR or withdrawal of care, Hospice)? DNR status @ -No What co-morbidities impacted this encounter? (DM, HTN, Smoking, COPD, CAD, Cancer, CVA, ARF, Chemo, Hep., AIDS, mental health diagnosis, sleep apnea, morbid obesity)? @ -None Was patient admitted / discharged? Hospital course, mention meds given and route, prescriptions, significant lab abnormalities, going to OR and other pertinent info. @ -Admitted patient presented for pleuritic type pain patient CT showing possible atelectasis versus atypical versus pulmonary overload patient has no history of CHF patient is more likely reactive from pleurisy type symptoms patient was removed from supplemental O2 and was hypoxic. Given this patient will be admitted Undiagnosed new problem with uncertain prognosis? @ -No Drug Therapy requiring intensive monitoring for toxicity (Heparin, Nitro, Insulin, Cardizem)? @ -No Were any procedures done? @ -No Diagnosis/symptom? @ -Pleuritic chest pain, pleurisy, hypoxia, COPD Acute, or Chronic, or Acute on Chronic? @ -Acute Uncomplicated (without systemic symptoms) or Complicated (systemic symptoms)? @ -complicated Side effects of treatment? @ -No Exacerbation, Progression, or Severe Exacerbation? @ -No Poses a threat to life or bodily function? How? (Chest pain, [place], NM, pneumonia, PE, COPD, DKA, ARF, appy, cholecystitis, CVA, Diverticulitis, Homicidal, Suicidal, threat to staff... and all critical care pts) @ -No - Lab Data Result diagrams: 07/04/24 11:14 07/04/24 11:14 Lab Results 07/04/24 07/04/24 07/04/24 Range/Units 11:14 11:14 11:14 WBC 10.59 H (4.50-10.00) 10*3/uL RBC 4.19 L (4.40-5.60) 10*6/uL Hgb 13.2 (13.0-17.0) g/dL Hct 37.7 L (39.6-50.0) % MCV 90.0 (80.0-97.0) fL MCH 31.5 (27.0-32.0) pg MCHC 35.0 (32.0-37.0) g/dL Plt Count 427 (140-440) 10*3/uL MPV 8.5 L (9.5-12.2) fL Immature Gran % (Auto) 0.5 % Neutrophils % 54.2 % Lymphocytes % 26.9 % Monocytes % 10.5 % Eosinophils % 6.9 % Basophils % 1.0 % Immature Gran # 0.05 H (0.00-0.04) 10*3/uL Neutrophils # 5.74 (1.80-7.70) 10*3/uL Lymphocytes # 2.85 (0.90-5.00) 10*3/uL Monocytes # 1.11 H (0.20-1.00) 10*3/uL Eosinophils # 0.73 H (0.04-0.35) 10*3/uL Basophils # 0.11 H (0.00-0.10) 10*3/uL PT 9.7 L (10.0-12.5) sec INR 0.8 (<1.2) APTT 24.6 (22.0-30.0) sec Sodium 141 (137-145) mmol/L Potassium 4.3 (3.5-5.1) mmol/L Chloride 104 (98-107) mmol/L Carbon Dioxide 27 (22-30) mmol/L Anion Gap 10 mmol/L BUN 12 (9-20) mg/dL Creatinine 0.74 (0.66-1.25) mg/dL Est GFR (CKD-EPI)AfAm >90 (>60 ml/min/1.73 sqM) Est GFR (CKD-EPI)NonAf >90 (>60 ml/min/1.73 sqM) Glucose 86 (74-99) mg/dL Calcium 9.7 (8.4-10.2) mg/dL Total Bilirubin 0.6 (0.2-1.3) mg/dL AST 24 (17-59) U/L ALT 26 (4-49) U/L Alkaline Phosphatase 61 (38-126) U/L Total Protein 7.1 (6.3-8.2) g/dL Albumin 4.2 (3.5-5.0) g/dL Disposition Clinical Impression: Pleurisy, Atelectasis, Chest wall pain, Hypoxia Disposition: ADMITTED IP TO THIS [facility] Condition: Fair Additional Instructions: Please return to the Emergency Department if symptoms worsen or any other concerns. Prescriptions: Ketorolac [Toradol] 10 mg PO Q8HR #15 tab Is patient prescribed a controlled substance at d/c from ED?: No Referrals: Lashell Nava MD [Primary Care Provider] - 1-2 days Time of Disposition: 13:12
[2024-07-04] MEDS: KETOROLAC 15 MG/ML 1 ML VIAL IVP STA (13:29)
[2024-07-04] MEDS ORDERED: ONDANSETRON 4 MG/2 ML VIAL IVP PRN (13:41)
[2024-07-04] MEDS ORDERED: HYDROmorphone 1 MG/ML 1 ML SYRINGE IVP PRN (13:41)
[2024-07-04] MEDS ORDERED: NALOXONE 0.4 MG/ML 1 ML VIAL IV PRN (13:41)
[2024-07-04] MEDS ORDERED: IPRATROPIUM-ALBUTEROL 3 ML NEB INHALATION PRN (13:42)
[2024-07-04] MEDS: IPRATROPIUM-ALBUTEROL 3 ML NEB INHALATION SCH (15:11)
[2024-07-04] MEDS: FUROSEMIDE 10 MG/ML 4 ML VIAL IV STA (15:59)
[2024-07-04] MEDS ORDERED: ACETAMINOPHEN TAB 325 MG TAB PO PRN (16:09)
--- NOTE | 2024-07-04 16:23 | P.HPIM ---
History of Present Illness H&P Date: 07/04/24 Chief Complaint: SOB Patient is a 63-year-old male with COPD presenting with shortness of breath. Patient was at urology office status post percutaneous nephrostomy for staghorn calculus. After patient had PCN removed, he started to feel short of breath out of nowhere. Patient admits to mild shortness of breath leading up to today but not as worse as today. He was then suggested to come to the ED. Per patient's patient has had difficulty sleeping while laying down because he becomes short of breath. Prefers to be sleeping in a upright seated position. He was previously on antihypertensives for his hypertension but has stopped using that. He has been noncompliant with all his medications. Patient denies any fever, chills, chest pain, abdominal pain, urinary symptoms. EKG independent interpreted displaying sinus rhythm, low voltage, rate 83 bpm, QTc 375 MS CXR independently interpreted displaying haziness in both lung condon Chest CT displaying right basilar atelectasis with airspace opacities, trace right pleural effusion, evidence of pneumothorax, scattered groundglass opacities in the lungs correlate for atypical WBC 10.59, Hgb 13.2, platelet 427, INR 0.8, sodium 141, BUN 12, creatinine 0.74, proBNP 230 97.8 F, as needed 79, RR 20, BP 169/95, O2 saturation 92% on 2 L nasal cannula ED documentation reviewed. Review of systems: Pertinent positives and negatives as discussed in HPI, a complete review of systems was performed and all other systems are negative. Social history: Tobacco: Current [id number] smoker Alcohol: Denies recent alcohol use Recreational drugs: Denies illicit drug use Travel: No recent travel Physical examination: Vital signs reviewed General: non toxic, no distress, appears at stated age, normal weight Derm: no unusual rashes/lesions, warm Head: atraumatic, normocephalic, symmetric Eyes: EOMI, anicteric sclera, pupils equal round reactive to light ENT: Nose and ears atraumatic Mouth: no lip lesion, mucus membranes moist Cardiovascular: S1S2 reg, no murmur, positive dorsalis pedis pulse bilateral, b/l LE 1+ pitting edema to midshin, positive JVD. Positive orthopnea Lungs: CTA bilateral, no rhonchi, no rales, no accessory muscle use Abdominal: soft, nontender to palpation, no guarding Ext: muscle strength 5 out of 5 in all 4 extremities grossly, no gross muscle atrophy Neuro: CN II-XI grossly intact, no gross focal neuro deficits Psych: Alert, oriented to person, place, and time Assessment/Plan: Patient is a 63-year-old male with COPD presenting with shortness of breath secondary to acute heart failure exacerbation. #. Acute heart failure exacerbation Positive for orthopnea, JVD, 1+ pitting edema proBNP 230 EKG independent interpreted displaying sinus rhythm, low voltage, rate 83 bpm, QTc 375 MS CXR independently interpreted displaying haziness in both lung condon Chest CT displaying right basilar atelectasis with airspace opacities, trace right pleural effusion IV Lasix 40 mg every 12 hours, monitor renal function Echocardiogram ordered Heart healthy diet, fluid restrict 2 L Intake/output strict Daily weights Cardiac telemetry Cardiology consulted #. COPD not in acute exacerbation DuoNebs [id number] and as needed currently breathing on room air #. Hypertension Resume home lisinopril 10 mg PO QD DVT prophylaxis: Lovenox 40 SQ daily The patient is admitted with an anticipated left than 2 midnight stay for evaluation of acute heart failure exacerbation. CODE STATUS: Full code Discussed with: Patient Anticipated discharge place: Likely home Serafin Basilio MD PGY-1 IM Dictation was produced using Net[employer] dictation software. please excuse any grammatical, word or spelling errors. I saw and evaluated the patient during the schmidt and critical portions of this encounter, and discussed the case in detail with the resident author of this note, I agree with the Assessment and Plan, and my changes, if any, are highlighted in blue. Past Medical History Past Medical History: COPD Additional Past Medical History / Comment(s): Kidney stone History of Any Multi-Drug Resistant Organisms: None Reported Additional Past Surgical History / Comment(s): Kidney stones. Past Psychological History: No Psychological Hx Reported Smoking Status: Current every day smoker Past Alcohol Use History: None Reported Past Drug Use History: None Reported Medications and Allergies Home Medications Medication Instructions Recorded Confirmed Type ALPRAZolam [Xanax] 0.5 mg PO HS PRN #7 tab 07/01/24 07/04/24 Rx HYDROcodone/APAP 5-325MG [[place] 1 tab PO Q4HR PRN 3 Days #18 tab 07/01/24 07/04/24 Rx 5-325] Ketorolac [Toradol] 10 mg PO Q8HR #15 tab 07/04/24 Rx Allergies Allergy/AdvReac Type Severity Reaction Status Date / Time amoxicillin Allergy Dyspnea Verified 07/04/24 14:29 clarithromycin Allergy Dyspnea Verified 07/04/24 14:29 Penicillins Allergy Dyspnea Verified 07/04/24 14:29 Physical Exam Osteopathic Statement: *. No significant issues noted on an osteopathic structural exam other than those noted in the History and Physical/Consult. Vitals: Vital Signs Temp Pulse Resp BP Pulse Ox 07/04/24 13:23 108 H 26 H 76 L 07/04/24 13:06 87 20 135/96 97 07/04/24 12:11 78 22 158/86 97 07/04/24 11:11 82 26 H 175/108 97 07/04/24 10:32 97.8 F 79 20 169/95 92 L Intake and Output 07/03/24 07/04/24 07/04/24 22:59 06:59 14:59 Other: Weight 92.986 kg Results CBC & Chem 7: 07/04/24 11:14 07/04/24 11:14 Labs: Abnormal Lab Results - Last 24 Hours (Table) 07/04/24 07/04/24 Range/Units 11:14 11:14 WBC 10.59 H (4.50-10.00) 10*3/uL RBC 4.19 L (4.40-5.60) 10*6/uL Hct 37.7 L (39.6-50.0) % MPV 8.5 L (9.5-12.2) fL Immature Gran # 0.05 H (0.00-0.04) 10*3/uL Monocytes # 1.11 H (0.20-1.00) 10*3/uL Eosinophils # 0.73 H (0.04-0.35) 10*3/uL Basophils # 0.11 H (0.00-0.10) 10*3/uL PT 9.7 L (10.0-12.5) sec
[2024-07-04] MEDS: HYDROmorphone 0.5 MG/0.5 ML SYRINGE IVP PRN (16:53)
[2024-07-04] MEDS ORDERED: HYDROmorphone 2 MG/ML 1 ML SYRINGE IVP PRN (18:09)
[2024-07-04] MEDS: CALCIUM CARBONATE 500 MG CHEWABLE PO PRN (18:45)
[2024-07-04] MEDS: KETOROLAC 15 MG/ML 1 ML VIAL IVP PRN (19:50)
[2024-07-04] MEDS: FUROSEMIDE 10 MG/ML 4 ML VIAL IV SCH (20:24)
[2024-07-05 03:15] LABS: Basophils # (A) 0.06 10*3/uL (0.00-0.10); Basophils % (A) 0.5 %; Eosinophils # (A) 0.57 10*3/uL (0.04-0.35); Eosinophils % (A) 4.4 %; HCT 36.6 % (39.6-50.0); Lymphocytes # (A) 2.21 10*3/uL (0.90-5.00); Lymphocytes % (A) 17.2 %; MCH 32.1 pg (27.0-32.0); MCHC 35.5 g/dL (32.0-37.0); MCV 90.4 fL (80.0-97.0); Mean Platelet Volume 8.3 fL (9.5-12.2); Monocytes # (A) 1.16 10*3/uL (0.20-1.00); Neutrophils # (A) 8.79 10*3/uL (1.80-7.70); Neutrophils % (A) 68.6 %; Platelet Count 411 10*3/uL (140-440); RBC 4.05 10*6/uL (4.40-5.60); RDW 12.8 % (11.5-14.5); WBC 12.83 10*3/uL (4.50-10.00)
[2024-07-05 03:39] LABS: African American GFR (CKD) 64 (>60 ml/min/1.73 sqM); Anion Gap 12 mmol/L; Blood Urea Nitrogen 18 mg/dL (9-20); Carbon Dioxide 23 mmol/L (22-30); Chloride 102 mmol/L (98-107); Glucose 105 mg/dL (74-99); Non-African American GFR(CKD) 55 (>60 ml/min/1.73 sqM); Potassium 4.1 mmol/L (3.5-5.1); Sodium 137 mmol/L (137-145)
[2024-07-05] MEDS: lisinopriL 10 MG TAB PO SCH (08:41)
--- NOTE | 2024-07-05 10:29 | US ---
EXAMINATION TYPE: US kidneys/renal and bladder DATE OF EXAM: 07/05/2024 COMPARISON: CT Chest CLINICAL INDICATION: Male, 63 years old with history of Bg; BG TECHNIQUE: Grayscale imaging of the bilateral kidneys and urinary bladder: FINDINGS: EXAM MEASUREMENTS: Right Kidney: 11.1 x 6.7 x 6.0 cm Left Kidney: 10.5 x 6.5 x 5.6 cm Pt very gassy- limited views of kidneys bilaterally Right Kidney: Limited views show no evidence of hydro, upper and lower poles gassed out Left Kidney: Limited views show no evidence of hydro, upper and lower poles gassed out, possible mult iple echogenic foci scattered throughout kidney, largest near upper/mid pole= 5mm Bladder: Possible thickened wall= 7mm Bilateral Jets seen: No IMPRESSION: 1. No evidence for obstructive uropathy. 2. Nonobstructing left renal calculi suggested. 3. Bladder wall thickening possibly due to underdistention versus cystitis correlate with urinalysis . [facility], , 07/05/2024 10:27 AM
--- NOTE | 2024-07-05 10:58 | P.CRDCN ---
History of Present Illness History of present illness: HISTORY OF PRESENT ILLNESS: This is a 63-year-old male with a past medical history significant for hypertension, lower extremity edema, and right renal calculus. Patient follows with a customer advocate up in [place]. We have been asked to see the patient in consultation for CHF. Patient examined at the bedside. Patient was recently admitted to the hospital secondary to right renal staghorn calculus. He underwent cystoscopy, percutaneous nephrostomy, percutaneous nephrostolithotomy with ultrasound and nephrostomy tube insertion. Patient states yesterday he was at the urology office having his nephrostomy tube removed when he began to have shortness of breath. Patient was directed to come to the emergency room for further evaluation. The patient does report mild shortness of breath this morning. He denies any chest pain or pressure. Patient does report that he was prescribed diuretics and blood pressure medications on an outpatient basis which he used to take but stopped taking. He reports his blood pressure normally runs between [id number]. He states he used to smoke 2 packs/day but now smokes approximately 1 pack/day. He reports having mild shortness of breath at [facility]. The patient was started on IV Lasix and lisinopril. Per nursing he refused both of these medications this morning. Patient reports having an echocardiogram and a stress test performed at [facility] in [place] earlier this year which were both normal to his knowledge. DIAGNOSTICS: - EKG reveals sinus mechanism with no signs of acute ischemia. Low voltage QRS. - Chest xray low lung volumes with generalized hazy appearance which could represent atelectasis versus pulmonary edema - Chest CT: Right basilar atelectasis with airspace opacities correlate for superimposed infection. Correlate for aspiration. Trace right pleural effusion. Scattered groundglass opacities at the lungs correlate for atypical pneumonia. - Laboratory data: WBC 12.83. Hemoglobin 13.0. Platelet count 411. Sodium 137. Potassium 4.1. BUN 18. Creatinine 1.37. - Current home cardiac medications include none - No previous echocardiogram, stress test, or cardiac catheterization available for review REVIEW OF SYSTEMS: At the time of my exam: CONSTITUTIONAL: Denies fever or chills. HEENT: Denies blurred vision, vision changes, or eye pain. Denies hemoptysis CARDIOVASCULAR: Denies chest pain. Denies orthopnea. Denies PND. Denies palpitations RESPIRATORY: Denies shortness of breath. GASTROINTESTINAL: Denies abdominal pain. Denies nausea or vomiting. HEMATOLOGIC: Denies bleeding disorders. GENITOURINARY: Denies any blood in urine. SKIN: Denies pruitis. Denies rash. PHYSICAL EXAM: VITAL SIGNS: Reviewed. GENERAL: Well-developed in no acute distress. HEENT: Head is normocephalic. Pupils are equal, round. Sclerae anicteric. Mucous membranes of the mouth are moist. Neck supple. No JVD or thyromegaly LUNGS: Respirations even and unlabored. Lungs essentially clear to auscultation bilaterally. HEART: Regular rate and rhythm. S1 and S2 heard. ABDOMEN: Soft. Nondistended. Nontender. EXTREMITIES: Normal range of motion. No clubbing or cyanosis. Peripheral pulses intact. No lower extremity edema NEUROLOGIC: Awake and alert. Oriented x 3. ASSESSMENT: Shortness of breath, right basilar atelectasis with possible superimposed infection per CT History of COPD Acute kidney injury Lower extremity edema without evidence of congestive heart failure Noncompliance with diuretics on an outpatient basis Noncompliance with antihypertensive medications on an outpatient basis History of right renal calculi, status post cystoscopy, percutaneous nephrostomy, percutaneous nephrostolithotomy with ultrasound and nephrostomy tube insertion History of small right apical pneumothorax Nicotine dependence, patient smokes 1 pack/day, down from 2 packs/day PLAN: Lower extremity edema without evidence of congestive heart failure No need to repeat echocardiogram as this was performed recently at outside facility Obtain records from [facility] of recent echocardiogram and stress test Discontinue IV Lasix. Begin oral Lasix 40 mg twice a day Discontinue lisinopril secondary to worsening kidney function today Educated patient on importance of medication compliance Recommend low-sodium diet Consult pulmonary for evaluation Further recommendations pending patient course Nurse practitioner note has been reviewed by physician. Signing provider agrees with the documented findings, assessment, and plan of care documented by MALTSTER as a scribe. Past Medical History Past Medical History: COPD Additional Past Medical History / Comment(s): Kidney stone History of Any Multi-Drug Resistant Organisms: None Reported Additional Past Surgical History / Comment(s): Kidney stones. Past Anesthesia/Blood Transfusion Reactions: No Reported Reaction Past Psychological History: No Psychological Hx Reported Smoking Status: Current every day smoker Past Alcohol Use History: None Reported Past Drug Use History: None Reported - Past Family History Father Additional Family Medical History / Comment(s): from cancer Mother Additional Family Medical History / Comment(s): from heart disease Medications and Allergies Home Medications Medication Instructions Recorded Confirmed Type ALPRAZolam [Xanax] 0.5 mg PO HS PRN #7 tab 07/01/24 07/04/24 Rx HYDROcodone/APAP 5-325MG [[place] 1 tab PO Q4HR PRN 3 Days #18 tab 07/01/24 07/04/24 Rx 5-325] Ketorolac [Toradol] 10 mg PO Q8HR #15 tab 07/04/24 Rx Allergies Allergy/AdvReac Type Severity Reaction Status Date / Time amoxicillin Allergy Dyspnea Verified 07/04/24 14:29 clarithromycin Allergy Dyspnea Verified 07/04/24 14:29 Penicillins Allergy Dyspnea Verified 07/04/24 14:29 Physical Exam Vitals: Vital Signs Temp Pulse Pulse Resp BP BP Pulse Ox 07/05/24 09:01 78 07/05/24 08:55 93 L 07/05/24 08:53 74 07/05/24 07:20 98.1 F 80 17 129/73 92 L 07/05/24 03:47 77 18 07/05/24 03:41 79 18 07/05/24 01:13 98.6 F 85 18 131/81 94 L 07/05/24 00:20 74 18 07/05/24 00:14 74 18 07/04/24 21:12 72 20 07/04/24 21:06 75 20 07/04/24 19:47 82 20 07/04/24 19:05 98.8 F 82 18 131/74 100 07/04/24 16:24 98.0 F 80 20 147/86 94 L 07/04/24 15:27 90 20 148/82 95 07/04/24 15:21 80 07/04/24 15:12 85 07/04/24 13:23 108 H 26 H 76 L 07/04/24 13:06 87 20 135/96 97 07/04/24 12:11 78 22 158/86 97 07/04/24 11:11 82 26 H 175/108 97 07/04/24 10:32 97.8 F 79 20 169/95 92 L Intake and Output 07/04/24 07/05/24 07/05/24 22:59 06:59 14:59 Intake Total 580 Output Total 400 Balance 180 Intake: Oral 580 Output: Urine 400 Other: Voiding Method Urinal Weight 92.986 kg Results 07/05/24 02:43 07/05/24 10:10 Cardiac Enzymes 07/04/24 Range/Units 11:14 AST 24 (17-59) U/L Coagulation 07/04/24 Range/Units 11:14 PT 9.7 L (10.0-12.5) sec APTT 24.6 (22.0-30.0) sec CBC 07/04/24 07/05/24 Range/Units 11:14 02:43 WBC 10.59 H 12.83 H (4.50-10.00) 10*3/uL RBC 4.19 L 4.05 L (4.40-5.60) 10*6/uL Hgb 13.2 13.0 (13.0-17.0) g/dL Hct 37.7 L 36.6 L (39.6-50.0) % Plt Count 427 411 (140-440) 10*3/uL Comprehensive Metabolic Panel 07/04/24 07/05/24 Range/Units 11:14 02:43 Sodium 141 137 (137-145) mmol/L Potassium 4.3 4.1 (3.5-5.1) mmol/L Chloride 104 102 (98-107) mmol/L Carbon Dioxide 27 23 (22-30) mmol/L BUN 12 18 (9-20) mg/dL Creatinine 0.74 1.37 H (0.66-1.25) mg/dL Glucose 86 105 H (74-99) mg/dL Calcium 9.7 10.0 (8.4-10.2) mg/dL AST 24 (17-59) U/L ALT 26 (4-49) U/L Alkaline Phosphatase 61 (38-126) U/L Total Protein 7.1 (6.3-8.2) g/dL Albumin 4.2 (3.5-5.0) g/dL Current Medications Generic Name Dose Route Start Last Admin Trade Name Freq PRN Reason Stop Dose Admin Acetaminophen 650 mg 07/04/24 16:09 Acetaminophen Tab 325 Mg Tab PO Q6HR PRN Fever and/ or Mild Pain Albuterol/Ipratropium 3 ml 07/04/24 13:42 Ipratropium-Albuterol 3 Ml Neb INHALATION RT-Q2H PRN Shortness Of Breath Or Wheezing Albuterol/Ipratropium 3 ml 07/04/24 16:00 07/05/24 08:53 Ipratropium-Albuterol 3 Ml Neb INHALATION 3 ml RT-Q4H FELISA Administration Calcium Carbonate/Glycine 500 mg 07/04/24 18:36 07/04/24 18:45 Calcium Carbonate 500 Mg Chewable PO 500 mg TID PRN Administration Heartburn Furosemide 40 mg 07/04/24 21:00 07/04/24 20:24 Furosemide 10 Mg/Ml 4 Ml Vial IV 40 mg Q12HR FELISA Administration Ketorolac Tromethamine 15 mg 07/04/24 13:41 07/05/24 03:26 Ketorolac 15 Mg/Ml 1 Ml Vial IVP 07/07/24 13:41 15 mg Q6HR PRN Administration Moderate Pain (Scale 4 to 6) Lisinopril 10 mg 07/05/24 09:00 07/05/24 08:41 Lisinopril 10 Mg Tab PO Not Given DAILY [facility] Naloxone HCl 0.2 mg 07/04/24 13:41 Naloxone 0.4 Mg/Ml 1 Ml Vial IV Q2M PRN Opioid Reversal Ondansetron HCl 4 mg 07/04/24 13:41 Ondansetron 4 Mg/2 Ml Vial IVP Q8HR PRN Nausea And Vomiting Intake and Output 07/04/24 07/05/24 07/05/24 22:59 06:59 14:59 Intake Total 580 Output Total 400 Balance 180 Intake: Oral 580 Output: Urine 400 Other: Voiding Method Urinal Weight 92.986 kg 07/05/24 02:43 07/05/24 02:43
[2024-07-05] MEDS: FUROSEMIDE 40 MG TAB PO SCH (11:19)
--- NOTE | 2024-07-05 11:47 | P.PN ---
Subjective Progress Note Date: 07/05/24 Hospital Course: Patient is a 63-year-old male with hypertension and COPD (no home oxygen) presenting with shortness of breath. Patient was at urology office status post percutaneous nephrostomy for staghorn calculus. After patient had PCN removed, he started to feel short of breath out of nowhere. Patient admits to mild shortness of breath leading up to today but not as worse as today. He was then suggested to come to the ED. Per patient's patient has had difficulty sleeping while laying down because he becomes short of breath. Prefers to be sleeping in a upright seated position. He was previously on antihypertensives for his hypertension but has stopped using that. He has been noncompliant with all his medications. Patient denies any fever, chills, chest pain, abdominal pain, urinary symptoms. EKG independent interpreted displaying sinus rhythm, low voltage, rate 83 bpm, QTc 375 MS CXR independently interpreted displaying haziness in both lung condon Chest CT displaying right basilar atelectasis with airspace opacities, trace right pleural effusion, evidence of pneumothorax, scattered groundglass opacities in the lungs correlate for atypical WBC 10.59, Hgb 13.2, platelet 427, INR 0.8, sodium 141, BUN 12, creatinine 0.74, proBNP 230 97.8 F, as needed 79, RR 20, BP 169/95, O2 saturation 92% on 2 L nasal cannula Subjective: Patient seen and examined at bedside. No acute events overnight. Has complaint of producing very little urine last night despite being on Lasix. Still states he has mild shortness of breath and noticed increased swelling in both his legs. Pertinent positives and negatives as discussed above, a complete review of systems was performed and all other systems are negative. Vitals: Signs Reviewed Physical Exam: General: nontoxic, no distress, appears at stated age Derm: warm, dry, intact Head: atraumatic, normocephalic, symmetric Eyes: EOMI, anicteric sclera Mouth: no lip lesion, mucus membranes moist Cardiovascular: S1 S2 reg, no murmur, rubs, or gallops Lungs: CTA bilateral, no rhonchi, no rales, no accessory muscle use Abdominal: soft, non-tender to palpataion, no appreciable organomegaly Extremities: no gross muscle atrophy, 2+ pitting edema bilateral lower extremities, no contractures Neuro: Alert, Oriented, CNII-XII grossly intact, gait normal Psych: well appearing, appropriate affect Data Received Today: Pertinent Labs: WBC 12.83, sodium 137, potassium 4.1, BUN 18, creatinine 1.37, magnesium 2.0 Imaging: Renal ultrasound showing no evidence of obstructive uropathy, nonobstructing left renal calculi, bladder wall thickening possibly due to underdistention versus cystitis Assessment and Plan: Patient is a 63-year-old male with COPD presenting with shortness of breath secondary to suspected acute heart failure exacerbation. #. Lower extremity edema without evidence of CHF Positive for orthopnea, JVD, 1+ pitting edema proBNP 230 EKG independent interpreted displaying sinus rhythm, low voltage, rate 83 bpm, QTc 375 MS CXR independently interpreted displaying haziness in both lung condon Chest CT displaying right basilar atelectasis with airspace opacities, trace right pleural effusion IV Lasix 40 mg has been discontinued, was given 2 g IV Bumex once and will continue with 2 g Bumex p.o. twice daily Previous echo recently preformed at outside facility and were normal to his knowledge Heart healthy diet, fluid restrict 2 L Intake/output strict Daily weights Cardiac telemetry Cardiology note reviewed, they are obtaining records from outside hospital of recent echo and stress test #. New onset oliguric PADILLA Urine urea, urine sodium, urine creatinine ordered Renal ultrasound showing no evidence of obstructive uropathy, nonobstructing left renal calculi, bladder wall thickening possibly due to underdistention versus cystitis Urinalysis ordered Nephrology consulted by pulmonology #. COPD not in acute exacerbation On 2 L nasal cannula, no cough or sputum production DuoNebs [id number] and as needed pulmonology consulted by cardiology Chronic: #. Hypertension: Hold lisinopril 10 mg PO QD due to worsening kidney function DVT ppx: Lovenox 40 SQ daily Code status: Full code Anticipated discharge place: Pending clinical course Anticipated discharge time: Pending clinical course Serafin Baislio MD PGY-1 IM Dictation was produced using [employer] dictation software. please excuse any grammatical, word or spelling errors. I saw and evaluated the patient during the schmidt and critical portions of this enc ounter, and discussed the case in detail with the resident author of this note, I agree with the Assessment and Plan, and my changes, if any, are highlighted in blue. Objective - Vital Signs Vital signs: Vital Signs Temp 98.6 F 07/05/24 01:13 Pulse 77 07/05/24 03:47 Resp 18 07/05/24 03:47 BP 131/81 07/05/24 01:13 Pulse Ox 94 L 07/05/24 01:13 FiO2 Intake & Output 07/04/24 07/04/24 07/05/24 06:59 18:59 06:59 Intake Total 580 Output Total 400 Balance 180 Weight 92.986 kg Intake: Oral 580 Output: Urine 400 Other: Voiding Method Urinal - Labs CBC & Chem 7: 07/05/24 02:43 07/05/24 10:10 Labs: Abnormal Lab Results - Last 24 Hours (Table) 07/04/24 07/04/24 07/05/24 Range/Units 11:14 11:14 02:43 WBC 10.59 H 12.83 H (4.50-10.00) 10*3/uL RBC 4.19 L 4.05 L (4.40-5.60) 10*6/uL Hct 37.7 L 36.6 L (39.6-50.0) % MCH 32.1 H (27.0-32.0) pg MPV 8.5 L 8.3 L (9.5-12.2) fL Immature Gran # 0.05 H (0.00-0.04) 10*3/uL Neutrophils # 8.79 H (1.80-7.70) 10*3/uL Monocytes # 1.11 H 1.16 H (0.20-1.00) 10*3/uL Eosinophils # 0.73 H 0.57 H (0.04-0.35) 10*3/uL Basophils # 0.11 H (0.00-0.10) 10*3/uL PT 9.7 L (10.0-12.5) sec Creatinine (0.66-1.25) mg/dL Glucose (74-99) mg/dL 07/05/24 Range/Units 02:43 WBC (4.50-10.00) 10*3/uL RBC (4.40-5.60) 10*6/uL Hct (39.6-50.0) % MCH (27.0-32.0) pg MPV (9.5-12.2) fL Immature Gran # (0.00-0.04) 10*3/uL Neutrophils # (1.80-7.70) 10*3/uL Monocytes # (0.20-1.00) 10*3/uL Eosinophils # (0.04-0.35) 10*3/uL Basophils # (0.00-0.10) 10*3/uL PT (10.0-12.5) sec Creatinine 1.37 H (0.66-1.25) mg/dL Glucose 105 H (74-99) mg/dL
[2024-07-05 11:52] LABS: Appearance,Urine Cloudy (Clear); Bilirubin,Urine Negative (Negative); Blood,Urine Large (Negative); Color,Urine Light Red; Glucose,Urine (UA) Negative (Negative); Ketones,Urine Negative (Negative); Leukocyte Esterase,Urine Moderate (Negative); Mucus,Urine Rare /hpf; Nitrite,Urine Negative (Negative); PH, Urine 5.5 (5.0-8.0); Protein,Urine Trace (Negative); RBC,Urine >182 /hpf (0-5); Specific Gravity,Urine 1.024 (1.001-1.035); Urobilinogen,Urine <2.0 mg/dL (<2.0); WBC,Urine 90 /hpf (0-5)
--- NOTE | 2024-07-05 12:10 | CA ---
Transthoracic Echo Report Name: Jv Jeffries Age: 63 Gender: M : 1960 Exam Date: 07/05/2024 10:03 Exam Location: [facility] Ht (in): 70 Wt (lb): 205 Ordering Physician: Serafin Basilio MD Attending/Referring Phys: Underwater Hunter Trapper Lori Harrison RDCS Procedure CPT: Indications: Heart failure Cardiac Hx: Technical Quality: Fair Contrast 1: Total Dose (mL): Contrast 2: Total Dose (mL): MEASUREMENTS (Male / Female) Normal Values 2D ECHO LV Diastolic Diameter PLAX 5.2 cm 4.2 - 5.9 / 3.9 - 5.3 cm LV Systolic Diameter PLAX 3.4 cm IVS Diastolic Thickness 1.1 cm 0.6 - 1.0 / 0.6 - 0.9 cm LVPW Diastolic Thickness 0.8 cm 0.6 - 1.0 / 0.6 - 0.9 cm LV Relative Wall Thickness 0.4 LVOT Diameter 2.2 cm LV Diastolic Volume MOD BP 112.8 cm??? 67 - 155 / 56 - 104 cm??? LV Systolic Volume MOD BP 40.2 cm??? 22 - 58 / 19 - 49 cm??? LV Ejection Fraction MOD BP 64.4 % >= 55 % LV Cardiac Index MOD BP 2717.1 cm???/min???m??? LV Diastolic Volume MOD 4C 129.8 cm??? LV Systolic Volume MOD 4C 46.0 cm??? LV Ejection Fraction MOD 4C 64.5 % LV Cardiac Index MOD 4C 3134.8 cm???/min???m??? LV Diastolic Length 4C 8.3 cm LV Systolic Length 4C 6.5 cm LV Diastolic Volume MOD 2C 96.4 cm??? LV Systolic Volume MOD 2C 33.7 cm??? LV Ejection Fraction MOD 2C 65.0 % LV Cardiac Index MOD 2C 2344.1 cm???/min???m??? LV Diastolic Length 2C 8.2 cm LV Systolic Length 2C 6.9 cm LA Volume 66.4 cm??? 18 - 58 / 22 - 52 cm??? LA Volume Index 30.7 cm???/m??? 16 - 28 cm???/m??? Ascending Aorta Diameter 3.6 cm M-MODE LV Diastolic Diameter MM 3.5 cm 4.2 - 5.9 / 3.9 - 5.3 cm LV Systolic Diameter MM 2.4 cm LV Cardiac Index MM Teich 1152.5 cm???/min???m??? IVS Diastolic Thickness MM 1.7 cm 0.6 - 1.0 / 0.6 - 0.9 cm LVPW Diastolic Thickness MM 1.6 cm 0.6 - 1.0 / 0.6 - 0.9 cm LV Relative Wall Thickness MM 0.9 0.24 - 0.42 / 0.22 - 0.42 LV Mass Index MM 107.5 g/m??? 49 - 115 / 43 - 95 g/m??? DOPPLER AV Peak Velocity 161.0 cm/s AV Peak Gradient 10.4 mmHg AV Mean Velocity 111.6 cm/s AV Mean Gradient 5.4 mmHg AV Velocity Time Integral 28.6 cm LVOT Peak Velocity 112.4 cm/s LVOT Peak Gradient 5.1 mmHg LVOT Velocity Time Integral 21.3 cm LVOT Stroke Volume 82.1 cm??? LVOT Stroke Volume Index 38.9 ml/m??? LVOT Cardiac Index 3070.4 cm???/min???m??? AV Area Cont Eq vti 2.9 cm??? AV Area Cont Eq pk 2.7 cm??? MV Area PHT 4.2 cm??? Mitral E Point Velocity 73.7 cm/s Mitral A Point Velocity 63.9 cm/s Mitral E to A Ratio 1.2 MV Deceleration Time 179.2 ms TR Peak Velocity 249.2 cm/s TR Peak Gradient 24.8 mmHg Right Atrial Pressure 5.0 mmHg Pulmonary Artery Systolic Pressu 29.8 mmHg Right Ventricular Systolic Press 29.8 mmHg PV Peak Velocity 122.4 cm/s PV Peak Gradient 6.0 mmHg FINDINGS Left Ventricle Left ventricular ejection fraction is estimated at 55-60 %. Normal left ventricular systolic function with no obvious regional wall motion abnormalities. Left ventricular cavity size normal. Right Ventricle Normal right ventricular size and function. Right ventricular systolic pressure within normal limits. Right Atrium Normal right atrial size. Left Atrium Mildly increased left atrial volume. Mitral Valve Structurally normal mitral valve. No mitral stenosis, trace to mild regurgitation. Aortic Valve Trileaflet aortic valve. No aortic valve stenosis or regurgitation. Tricuspid Valve Structurally normal tricuspid valve. No tricuspid stenosis. Trace to mild tricuspid regurgitation. Pulmonic Valve Structurally normal pulmonic valve. No pulmonic stenosis. Pericardium No pericardial effusion. Aorta Normal size aortic root and proximal ascending aorta. CONCLUSIONS 1. Normal left ventricular size and systolic function 2. Trace to mild mitral and tricuspid regurgitation Previewed by: Dr. Sincere Acevedo MD (Electronically Signed) Final Date: 05 July 2024 12:09
[2024-07-05] MEDS: BUMETANIDE 0.25 MG/ML 10 ML VIAL IV STA (12:12)
--- NOTE | 2024-07-05 12:35 | P.NPCON ---
History of Present Illness - Reason for Consult acute renal failure - History of Present Illness Reason for consultation: Acute kidney injury History of present illness: Patient is a 63-year-old male seen in renal consultation for acute kidney injury. Creatinine on admission was 0.74 dated July 04, 2024 and is up to 1.46 today. Patient was recently treated for a right staghorn calculus and underwent cystoscopy and percutaneous nephrostomy. Patient states he went to the urologist office yesterday to have the nephrostomy tube removed which was done successfully. However patient was noted to have shortness of breath and came to the hospital. Chest CT showed atelectasis with possible aspiration as well as groundglass opacities concerning for atypical pneumonia. Trace right effusion was noted. Echocardiogram showed preserved ejection fraction. He did receive a dose of IV Lasix yesterday. Patient also received Toradol as well as lisinopril which are all now discontinued. He is receiving antibiotics for UTI. Denies chest pain. He does have a nonproductive cough. He does smoke about a pack a day but was smoking up to 2 packs a day about a week ago. Denies history of diabetes or coronary disease. Denies regular use of nonsteroidals. No hydronephrosis noted on kidney ultrasound. Oral intake is fair. No vomiting or diarrhea. Vital signs are stable. General: No acute distress. HEENT: Head exam is unremarkable. LUNGS: No audible rhonchi or wheezes. HEART: Rate and Rhythm are regular. ABDOMEN: Nontender. Obese. EXTREMITITES: No edema. Past Medical History Past Medical History: COPD Additional Past Medical History / Comment(s): Kidney stone History of Any Multi-Drug Resistant Organisms: None Reported Additional Past Surgical History / Comment(s): Kidney stones. Past Anesthesia/Blood Transfusion Reactions: No Reported Reaction Past Psychological History: No Psychological Hx Reported Smoking Status: Current every day smoker Past Alcohol Use History: None Reported Past Drug Use History: None Reported - Past Family History Father Additional Family Medical History / Comment(s): from cancer Mother Additional Family Medical History / Comment(s): from heart disease Medications and Allergies Home Medications Medication Instructions Recorded Confirmed Type ALPRAZolam [Xanax] 0.5 mg PO HS PRN #7 tab 07/01/24 07/04/24 Rx HYDROcodone/APAP 5-325MG [[place] 1 tab PO Q4HR PRN 3 Days #18 tab 07/01/24 07/04/24 Rx 5-325] Ketorolac [Toradol] 10 mg PO Q8HR #15 tab 07/04/24 Rx Allergies Allergy/AdvReac Type Severity Reaction Status Date / Time amoxicillin Allergy Dyspnea Verified 07/04/24 14:29 clarithromycin Allergy Dyspnea Verified 07/04/24 14:29 Penicillins Allergy Dyspnea Verified 07/04/24 14:29 Physical Exam Vitals: Vital Signs Temp Pulse Pulse Resp BP BP Pulse Ox 07/05/24 12:14 76 07/05/24 12:04 72 07/05/24 10:21 80 17 07/05/24 09:01 78 07/05/24 08:55 93 L 07/05/24 08:53 74 07/05/24 07:20 98.1 F 80 17 129/73 92 L 07/05/24 03:47 77 18 07/05/24 03:41 79 18 07/05/24 01:13 98.6 F 85 18 131/81 94 L 07/05/24 00:20 74 18 07/05/24 00:14 74 18 07/04/24 21:12 72 20 07/04/24 21:06 75 20 07/04/24 19:47 82 20 07/04/24 19:05 98.8 F 82 18 131/74 100 07/04/24 16:24 98.0 F 80 20 147/86 94 L 07/04/24 15:27 90 20 148/82 95 07/04/24 15:21 80 07/04/24 15:12 85 07/04/24 13:23 108 H 26 H 76 L 07/04/24 13:06 87 20 135/96 97 Intake and Output 07/04/24 07/05/24 07/05/24 22:59 06:59 14:59 Intake Total 580 250 Output Total 400 Balance 180 250 Intake: Oral 580 250 Output: Urine 400 Other: Voiding Method Urinal Urinal Weight 92.986 kg Results - Lab Results Most recent lab results Calcium 10.0 mg/dL (8.4-10.2) 07/05/24 02:43 Magnesium 2.0 mg/dL (1.6-2.3) 07/05/24 02:43 07/05/24 02:43 07/05/24 10:10 Assessment and Plan Plan: Assessment: 1. Acute kidney injury secondary to ATN secondary to infection and diuresis. Creatinine 0.7 on admission 1.46 today. No hydronephrosis noted on ultrasound. UA with trace proteinuria and suggestive of UTI. 2. Recent staghorn calculus status post cystoscopy with percutaneous nephrostomy. Nephrostomy tube removed July 04, 2024. On antibiotics. 3. Tobacco abuse. Plan: Hold diuretics for now. Check bladder scan to rule out urinary retention. Avoid nephrotoxins, including NSAIDs. Agree with stopping lisinopril. Continue to monitor renal function and urine output. Consider beta agonist/nebulized therapy Thank you for the consultation. I will continue to follow the patient with you during his hospital stay.
[2024-07-05 14:53] LABS: Chol/HDL Ratio 6.04 Ratio; LDL Cholesterol,Calculated 146.7 mg/dL (0.0-131.0)
--- NOTE | 2024-07-05 16:28 | P.CNPUL ---
History of Present Illness Consult date: 07/05/24 Reason for consult: dyspnea, chest pain History of present illness: This is a 63-year-old male patient who was hospitalized for significant pain involving the chest specially on the right and some of the labs mainly in the posterior aspect. The patient also encountered worsening shortness of breath. Note that those symptoms started after the patient was seen by urology and the nephrostomy tube was removed in the office. The patient subsequently and within few hours, experienced those symptoms of chest pain and shortness of breath. Noted the patient had a recent hospitalization for a staghorn right calculus and the patient underwent cystoscopy and percutaneous nephrostomy tube insertion and the patient underwent percutaneous nephrolithotomy with ultrasound on 06/29/2024 and the patient was discharged home on 07/01/2024. He did encounter a small right-sided pneumothorax based on a chest x-ray that was done on 06/29/2024 and subsequent chest x-rays including a chest x-ray that was done at time of discharge from the hospital on 07/01/2024 showed a trace pneumothorax on the right. However, his symptoms initially started following the nephrostomy tube removal. The patient came into the hospital. A chest x-ray was done and it sh owed smaller lung volumes and generalized hazy appearance with some atelectatic changes and possibly there was a component of pulm vessel congestion. There was no evidence of any pneumothorax. Subsequently, the patient was given a CAT scan of the chest that showed right basilar airspace opacities which suggest the possibility of infection. There was a trace right-sided pleural effusion. There was also scattered groundglass opacities in the lungs without evidence of any pneumothorax. Based on that, the patient was hospitalized and pulmonary consultation was requested. His current temperature is at 98.9. Is on room air oxygen with a pulse ox of 92%. His blood work shows an acute kidney injury. Creatinine is at 1.4 with a sodium level of 137 and a potassium level is at 4.1. Bicarb is at 23, WBC count of 12.8 with hemoglobin 13 and platelet count of 411. He has also encountered some increased edema in lower extremities bilaterally. Noted the patient was taken Toradol and he was given also diuretics for lower extremity edema. He is known to have COPD. Noted his previous urine cultures from 06/21/2024 was negative. Review of Systems Constitutional: Reports as per HPI Eyes: denies as per HPI, denies blurred vision, denies bulging eye, denies decreased vision, denies diplopia, denies discharge, denies dry eye, denies irritation, denies itching, denies pain, denies photophobia, denies loss of peripheral vision, denies loss of vision, denies tunnel vision/blind spots Ears: deny: decreased hearing, ear discharge, earache, tinnitus Ears, nose, mouth and throat: Reports as per HPI Breasts: absent: as per HPI, gynecomastia Cardiovascular: Reports chest pain, Reports decreased exercise tolerance, Reports dyspnea on exertion, Reports leg edema Respiratory: Reports dyspnea Genitourinary: Reports as per HPI Musculoskeletal: Reports as per HPI Musculoskeletal: bilateral: ankle swelling, absent: ankle pain, ankle stiffness, as per HPI, elbow pain, elbow stiffness, elbow swelling, foot pain, foot stiffness, foot swelling, hand pain, hand stiffness, hand swelling, hip pain, hip stiffness, hip swelling, knee pain, knee stiffness, knee swelling, shoulder pain, shoulder stiffness, shoulder swelling, wrist pain, wrist stiffness, wrist swelling Integumentary: Reports as per HPI Neurological: Reports as per HPI Psychiatric: Reports as per HPI Endocrine: Reports as per HPI Hematologic/Lymphatic: Reports as per HPI Allergic/Immunologic: Reports as per HPI Past Medical History Past Medical History: COPD Additional Past Medical History / Comment(s): Kidney stone History of Any Multi-Drug Resistant Organisms: None Reported Additional Past Surgical History / Comment(s): Kidney stones. Past Anesthesia/Blood Transfusion Reactions: No Reported Reaction Past Psychological History: No Psychological Hx Reported Smoking Status: Current every day smoker Past Alcohol Use History: None Reported Past Drug Use History: None Reported - Past Family History Father Additional Family Medical History / Comment(s): from cancer Mother Additional Family Medical History / Comment(s): from heart disease Medications and Allergies Home Medications Medication Instructions Recorded Confirmed Type ALPRAZolam [Xanax] 0.5 mg PO HS PRN #7 tab 07/01/24 07/04/24 Rx HYDROcodone/APAP 5-325MG [[place] 1 tab PO Q4HR PRN 3 Days #18 tab 07/01/24 07/04/24 Rx 5-325] Ketorolac [Toradol] 10 mg PO Q8HR #15 tab 07/04/24 Rx Allergies Allergy/AdvReac Type Severity Reaction Status Date / Time amoxicillin Allergy Dyspnea Verified 07/04/24 14:29 clarithromycin Allergy Dyspnea Verified 07/04/24 14:29 Penicillins Allergy Dyspnea Verified 07/04/24 14:29 Physical Exam Vitals: Vital Signs Temp Pulse Pulse Resp BP Pulse Ox 07/05/24 16:05 104 H 07/05/24 15:52 100 07/05/24 13:56 98.9 F 103 H 17 144/72 92 L 07/05/24 12:14 76 07/05/24 12:04 72 07/05/24 10:21 80 17 07/05/24 09:01 78 07/05/24 08:55 93 L 07/05/24 08:53 74 07/05/24 07:20 98.1 F 80 17 129/73 92 L 07/05/24 03:47 77 18 07/05/24 03:41 79 18 07/05/24 01:13 98.6 F 85 18 131/81 94 L 07/05/24 00:20 74 18 07/05/24 00:14 74 18 07/04/24 21:12 72 20 07/04/24 21:06 75 20 07/04/24 19:47 82 20 07/04/24 19:05 98.8 F 82 18 131/74 100 Intake and Output 07/05/24 07/05/24 07/05/24 06:59 14:59 22:59 Intake Total 580 250 540 Output Total 400 Balance 180 250 540 Intake: Oral 580 250 540 Output: Urine 400 Other: Voiding Method Urinal The patient appeared well nourished and normally developed. Vital signs as do cumented. Head exam is unremarkable. No scleral icterus or corneal arcus noted. Neck is without jugular venous distension, thyromegaly, or carotid bruits. Carotid upstrokes are brisk bilaterally. Lungs a diminished breath sounds bilateral lung with some limited bibasilar crackles. Cardiac exam reveals the PMI to be normally sized and situated. Rhythm is regular. First and second heart sounds normal. No murmurs, rubs or gallops. Abdominal exam reveals normal bowel sounds, no masses, no organomegaly and no aortic enlargement. Extremities are showing edema in lower extremities, +1 and both femoral and pedal pulses are normal. Examination of the skin revealed no evidence of significant rashes, suspicious appearing nevi or other concerning lesions. Neurologically, the patient is awake and alert and the patient does not have any focal neurological deficit. Cranial nerves are essentially intact. Results - Laboratory Findings CBC and BMP: 07/05/24 02:43 07/05/24 10:10 ABG WBC 12.83 10*3/uL (4.50-10.00) H 07/05/24 02:43 RBC 4.05 10*6/uL (4.40-5.60) L 07/05/24 02:43 Hgb 13.0 g/dL (13.0-17.0) 07/05/24 02:43 Hct 36.6 % (39.6-50.0) L 07/05/24 02:43 MCV 90.4 fL (80.0-97.0) 07/05/24 02:43 MCH 32.1 pg (27.0-32.0) H 07/05/24 02:43 MCHC 35.5 g/dL (32.0-37.0) 07/05/24 02:43 RDW 12.8 % (11.5-14.5) 07/05/24 02:43 Plt Count 411 10*3/uL (140-440) 07/05/24 02:43 MPV 8.3 fL (9.5-12.2) L 07/05/24 02:43 Immature Gran % (Auto) 0.5 % 07/04/24 11:14 Neutrophils % 68.6 % 07/05/24 02:43 Lymphocytes % 17.2 % 07/05/24 02:43 Monocytes % 9.0 % 07/05/24 02:43 Eosinophils % 4.4 % 07/05/24 02:43 Basophils % 0.5 % 07/05/24 02:43 Immature Gran # 0.04 10*3/uL (0.00-0.04) 07/05/24 02:43 Neutrophils # 8.79 10*3/uL (1.80-7.70) H 07/05/24 02:43 Lymphocytes # 2.21 10*3/uL (0.90-5.00) 07/05/24 02:43 Monocytes # 1.16 10*3/uL (0.20-1.00) H 07/05/24 02:43 Eosinophils # 0.57 10*3/uL (0.04-0.35) H 07/05/24 02:43 Basophils # 0.06 10*3/uL (0.00-0.10) 07/05/24 02:43 PT 9.7 sec (10.0-12.5) L 07/04/24 11:14 INR 0.8 (<1.2) 07/04/24 11:14 APTT 24.6 sec (22.0-30.0) 07/04/24 11:14 Sodium 137 mmol/L (137-145) 07/05/24 02:43 Potassium 4.1 mmol/L (3.5-5.1) 07/05/24 02:43 Chloride 102 mmol/L (98-107) 07/05/24 02:43 Carbon Dioxide 23 mmol/L (22-30) 07/05/24 02:43 Anion Gap 12 mmol/L 07/05/24 02:43 BUN 18 mg/dL (9-20) 07/05/24 02:43 Creatinine 1.46 mg/dL (0.66-1.25) H 07/05/24 10:10 Est GFR (CKD-EPI)AfAm 64 (>60 ml/min/1.73 sqM) 07/05/24 02:43 Est GFR (CKD-EPI)NonAf 55 (>60 ml/min/1.73 sqM) 07/05/24 02:43 Glucose 105 mg/dL (74-99) H 07/05/24 02:[address] Glu mg/dL 123 mg/dL 07/05/24 02:43 Hemoglobin A1c 5.9 % (<=6.0) 07/05/24 02:43 Calcium 10.0 mg/dL (8.4-10.2) 07/05/24 02:43 Magnesium 2.0 mg/dL (1.6-2.3) 07/05/24 02:43 Total Bilirubin 0.6 mg/dL (0.2-1.3) 07/04/24 11:14 AST 24 U/L (17-59) 07/04/24 11:14 ALT 26 U/L (4-49) 07/04/24 11:14 Alkaline Phosphatase 61 U/L (38-126) 07/04/24 11:14 NT-Pro-B Natriuret Pep 230 pg/mL 07/04/24 11:14 Total Protein 7.1 g/dL (6.3-8.2) 07/04/24 11:14 Albumin 4.2 g/dL (3.5-5.0) 07/04/24 11:14 Triglycerides 105.00 mg/dL (0.00-149.00) 07/05/24 02:43 Cholesterol 201.00 mg/dL (0.00-200.00) H 07/05/24 02:43 LDL Cholesterol, Calc 146.7 mg/dL (0.0-131.0) H 07/05/24 02:43 VLDL Cholesterol, Calc 21.00 mg/dL (5.00-40.00) 07/05/24 02:43 HDL Cholesterol 33.30 mg/dL (40.00-60.00) L 07/05/24 02:43 Cholesterol/HDL Ratio 6.04 Ratio 07/05/24 02:43 Urine Color Light Red 07/05/24 10:30 Urine Appearance Cloudy (Clear) 07/05/24 10:30 Urine pH 5.5 (5.0-8.0) 07/05/24 10:30 Ur Specific [place] 1.024 (1.001-1.035) 07/05/24 10:30 Urine Protein Trace (Negative) H 07/05/24 10:30 Urine Glucose (UA) Negative (Negative) 07/05/24 10:30 Urine Ketones Negative (Negative) 07/05/24 10:30 Urine Blood Large (Negative) H 07/05/24 10:30 Urine Nitrite Negative (Negative) 07/05/24 10:30 Urine Bilirubin Negative (Negative) 07/05/24 10:30 Urine Urobilinogen <2.0 mg/dL (<2.0) 07/05/24 10:30 Ur Leukocyte Esterase Moderate (Negative) H 07/05/24 10:30 Urine RBC >182 /hpf (0-5) H 07/05/24 10:30 Urine WBC 90 /hpf (0-5) H 07/05/24 10:30 Urine Mucus Rare /hpf (None) H 07/05/24 10:30 PT/INR, D-dimer PT 9.7 sec (10.0-12.5) L 07/04/24 11:14 INR 0.8 (<1.2) 07/04/24 11:14 Abnormal lab findings: Abnormal Labs 07/04/24 07/04/24 07/05/24 11:14 11:14 02:43 WBC 10.59 H 12.83 H RBC 4.19 L 4.05 L Hct 37.7 L 36.6 L MCH 32.1 H MPV 8.5 L 8.3 L Immature Gran # 0.05 H Neutrophils # 8.79 H Monocytes # 1.11 H 1.16 H Eosinophils # 0.73 H 0.57 H Basophils # 0.11 H PT 9.7 L Creatinine Glucose Cholesterol LDL Cholesterol, Calc HDL Cholesterol Urine Protein Urine Blood Ur Leukocyte Esterase Urine RBC Urine WBC Urine Mucus 07/05/24 07/05/24 07/05/24 02:43 02:43 10:10 WBC RBC Hct MCH MPV Immature Gran # Neutrophils # Monocytes # Eosinophils # Basophils # PT Creatinine 1.37 H 1.46 H Glucose 105 H Cholesterol 201.00 H LDL Cholesterol, Calc 146.7 H HDL Cholesterol 33.30 L Urine Protein Urine Blood Ur Leukocyte Esterase Urine RBC Urine WBC Urine Mucus 07/05/24 10:30 WBC RBC Hct MCH MPV Immature Gran # Neutrophils # Monocytes # Eosinophils # Basophils # PT Creatinine Glucose Cholesterol LDL Cholesterol, Calc HDL Cholesterol Urine Protein Trace H Urine Blood Large H Ur Leukocyte Esterase Moderate H Urine RBC >182 H Urine WBC 90 H Urine Mucus Rare H - Diagnostic Findings Chest x-ray: image reviewed CT scan - chest: image reviewed Assessment and Plan Plan: Acute dyspnea/chest pain immediately post removal of nephrostomy tube on 07/04/2024. Acute right lower lobe airspace disease with trace right-sided pleural effusion and patchy groundglass infiltrates bilaterally. Consider the possibility of urinary leak into the pleural space causing a chemical/reactive pneumonia. Noted the urine on 06/21/2024 was not infected. Staghorn right-sided renal calculus post cystoscopy, percutaneous nephrostomy nephrolithotomy, discharged from the hospital on 07/01/2024 Small right-sided pneumothorax, recovered on a chest x-ray on 07/01/2024, likely iatrogenic post urologic intervention COPD Acute kidney injury, likely due to use of nonsteroidal anti-inflammatory medication/Toradol in addition to diuretics. Noted the patient was also taking JEET inhibitor's. Plan Cover the patient with IV Rocephin Incentive spirometer Monitor oxygenation Repeat chest x-ray in a.m. Monitor renal function Avoid nephrotoxic agents Ultrasound the kidneys Echocardiogram Hold diuretics Consult nephrology Consult urology Obtain a UAAnd urine cultures Will continue to follow Time with Patient: Greater than 30
[2024-07-05] MEDS: HYDROcodone/APAP 5-325MG 1 EACH TAB PO PRN (18:26)
[2024-07-05] MEDS: polyethylene glycoL 3350 17 GM POWD.PACK PO PRN (19:55)
[2024-07-05] MEDS ORDERED: BUMETANIDE 1 MG TAB PO SCH (21:00)
[2024-07-06 03:21] LABS: Basophils # (A) 0.06 10*3/uL (0.00-0.10); Basophils % (A) 0.5 %; Eosinophils # (A) 0.37 10*3/uL (0.04-0.35); Eosinophils % (A) 3.1 %; HCT 33.9 % (39.6-50.0); HGB 11.8 g/dL (13.0-17.0); Lymphocytes # (A) 2.22 10*3/uL (0.90-5.00); Lymphocytes % (A) 18.6 %; MCH 31.8 pg (27.0-32.0); MCHC 34.8 g/dL (32.0-37.0); MCV 91.4 fL (80.0-97.0); Mean Platelet Volume 9.9 fL (9.5-12.2); Monocytes # (A) 1.62 10*3/uL (0.20-1.00); Monocytes % (A) 13.6 %; Neutrophils # (A) 7.63 10*3/uL (1.80-7.70); Neutrophils % (A) 63.9 %; Platelet Count 345 10*3/uL (140-440); RBC 3.71 10*6/uL (4.40-5.60); RDW 12.7 % (11.5-14.5); WBC 11.94 10*3/uL (4.50-10.00)
[2024-07-06 03:47] LABS: ALT 20 U/L (4-49); AST 19 U/L (17-59); African American GFR (CKD) 60 (>60 ml/min/1.73 sqM); Albumin 3.8 g/dL (3.5-5.0); Albumin/Globulin Ratio 1.4; Alkaline Phosphatase 68 U/L (38-126); Anion Gap 12 mmol/L; Blood Urea Nitrogen 23 mg/dL (9-20); Calcium 9.6 mg/dL (8.4-10.2); Carbon Dioxide 22 mmol/L (22-30); Chloride 102 mmol/L (98-107); Globulin 2.8 g/dL; Glucose 103 mg/dL (74-99); Magnesium 1.9 mg/dL (1.6-2.3); Non-African American GFR(CKD) 52 (>60 ml/min/1.73 sqM); Potassium 3.8 mmol/L (3.5-5.1); Sodium 136 mmol/L (137-145); Total Bilirubin 0.9 mg/dL (0.2-1.3); Total Protein 6.6 g/dL (6.3-8.2)
[2024-07-06 07:11] VITALS: BP 154/84; PULSE 92; TEMP 98.7
[2024-07-06] MEDS: IPRATROPIUM-ALBUTEROL 3 ML NEB INHALATION SCH (08:23)
[2024-07-06 09:02] VITALS: RESP 18
--- NOTE | 2024-07-06 09:25 | P.GSCN ---
History of Present Illness Consult date: 07/06/24 History of present illness: 63-year-old gentleman who underwent a right percutaneous nephrostolithotomy last week without difficulty. A he had a greater than 5 cm stone and collection of stones removed. I had to access the upper pole of the kidney in order to remove the stones. I was concerned possibly of a pneumothorax and a chest x-ray postoperatively did not obviously show 1 however subsequently he had some shortness of breath and a chest x-ray identified about a 10% pneumothorax. The patient has other reasons for respiratory issues which were also addressed. The patient was in the office Thursday for nephrostomy tube removal. He had a significant amount of chest discomfort after the tube removal. He was sent to the emergency room. Chest x-ray did not show any pneumothorax. He was admitted for further evaluation and treatment. He feels well this morning and is breathing without difficulty. He is voiding without problems. Past Medical History Past Medical History: COPD Additional Past Medical History / Comment(s): Kidney stone History of Any Multi-Drug Resistant Organisms: None Reported Additional Past Surgical History / Comment(s): Kidney stones. Past Anesthesia/Blood Transfusion Reactions: No Reported Reaction Past Psychological History: No Psychological Hx Reported Smoking Status: Current every day smoker Past Alcohol Use History: None Reported Past Drug Use History: None Reported - Past Family History Father Additional Family Medical History / Comment(s): from cancer Mother Additional Family Medical History / Comment(s): from heart disease Medications and Allergies Home Medications Medication Instructions Recorded Confirmed Type ALPRAZolam [Xanax] 0.5 mg PO HS PRN #7 tab 07/01/24 07/04/24 Rx HYDROcodone/APAP 5-325MG [Yoder 1 tab PO Q4HR PRN 3 Days #18 tab 07/01/24 07/04/24 Rx 5-325] Ketorolac [Toradol] 10 mg PO Q8HR #15 tab 07/04/24 Rx Allergies Allergy/AdvReac Type Severity Reaction Status Date / Time amoxicillin Allergy Dyspnea Verified 07/04/24 14:29 clarithromycin Allergy Dyspnea Verified 07/04/24 14:29 Penicillins Allergy Dyspnea Verified 07/04/24 14:29 Surgical - Exam Vital Signs Temp Pulse Resp BP Pulse Ox 97.8 F 79 20 169/95 92 L 07/04/24 10:32 07/04/24 10:32 07/04/24 10:32 07/04/24 10:32 07/04/24 10:32 Results - Labs 07/06/24 02:27 07/06/24 02:27 Abnormal Lab Results - Last 24 Hours (Table) 07/05/24 07/05/24 07/05/24 Range/Units 02:43 10:10 10:30 WBC (4.50-10.00) 10*3/uL RBC (4.40-5.60) 10*6/uL Hgb (13.0-17.0) g/dL Hct (39.6-50.0) % Monocytes # (0.20-1.00) 10*3/uL Eosinophils # (0.04-0.35) 10*3/uL Sodium (137-145) mmol/L BUN (9-20) mg/dL Creatinine 1.46 H (0.66-1.25) mg/dL Glucose (74-99) mg/dL Cholesterol 201.00 H (0.00-200.00) mg/dL LDL Cholesterol, Calc 146.7 H (0.0-131.0) mg/dL HDL Cholesterol 33.30 L (40.00-60.00) mg/dL Urine Protein Trace H (Negative) Urine Blood Large H (Negative) Ur Leukocyte Esterase Moderate H (Negative) Urine RBC >182 H (0-5) /hpf Urine WBC 90 H (0-5) /hpf Urine Mucus Rare H (None) /hpf Ur Random Sodium (40-220) mmol/L 07/05/24 07/06/24 07/06/24 Range/Units 10:30 02:27 02:27 WBC 11.94 H (4.50-10.00) 10*3/uL RBC 3.71 L (4.40-5.60) 10*6/uL Hgb 11.8 L (13.0-17.0) g/dL Hct 33.9 L (39.6-50.0) % Monocytes # 1.62 H (0.20-1.00) 10*3/uL Eosinophils # 0.37 H (0.04-0.35) 10*3/uL Sodium 136 L (137-145) mmol/L BUN 23 H (9-20) mg/dL Creatinine 1.45 H (0.66-1.25) mg/dL Glucose 103 H (74-99) mg/dL Cholesterol (0.00-200.00) mg/dL LDL Cholesterol, Calc (0.0-131.0) mg/dL HDL Cholesterol (40.00-60.00) mg/dL Urine Protein (Negative) Urine Blood (Negative) Ur Leukocyte Esterase (Negative) Urine RBC (0-5) /hpf Urine WBC (0-5) /hpf Urine Mucus (None) /hpf Ur Random Sodium 27 L (40-220) mmol/L Diabetes panel 07/05/24 07/05/24 07/05/24 Range/Units 02:43 02:43 10:10 Sodium (137-145) mmol/L Potassium (3.5-5.1) mmol/L Chloride (98-107) mmol/L Carbon Dioxide (22-30) mmol/L BUN (9-20) mg/dL Creatinine 1.46 H (0.66-1.25) mg/dL Glucose (74-99) mg/dL Hemoglobin A1c 5.9 (<=6.0) % Calcium (8.4-10.2) mg/dL AST (17-59) U/L ALT (4-49) U/L Alkaline Phosphatase (38-126) U/L Total Protein (6.3-8.2) g/dL Albumin (3.5-5.0) g/dL Triglycerides 105.00 (0.00-149.00) mg/dL HDL Cholesterol 33.30 L (40.00-60.00) mg/dL 07/06/24 Range/Units 02:27 Sodium 136 L (137-145) mmol/L Potassium 3.8 (3.5-5.1) mmol/L Chloride 102 (98-107) mmol/L Carbon Dioxide 22 (22-30) mmol/L BUN 23 H (9-20) mg/dL Creatinine 1.45 H (0.66-1.25) mg/dL Glucose 103 H (74-99) mg/dL Hemoglobin A1c (<=6.0) % Calcium 9.6 (8.4-10.2) mg/dL AST 19 (17-59) U/L ALT 20 (4-49) U/L Alkaline Phosphatase 68 (38-126) U/L Total Protein 6.6 (6.3-8.2) g/dL Albumin 3.8 (3.5-5.0) g/dL Triglycerides (0.00-149.00) mg/dL HDL Cholesterol (40.00-60.00) mg/dL Calcium panel 07/06/24 Range/Units 02:27 Calcium 9.6 (8.4-10.2) mg/dL Albumin 3.8 (3.5-5.0) g/dL Pituitary panel 07/05/24 07/06/24 Range/Units 10:10 02:27 Sodium 136 L (137-145) mmol/L Potassium 3.8 (3.5-5.1) mmol/L Chloride 102 (98-107) mmol/L Carbon Dioxide 22 (22-30) mmol/L BUN 23 H (9-20) mg/dL Creatinine 1.46 H 1.45 H (0.66-1.25) mg/dL Glucose 103 H (74-99) mg/dL Calcium 9.6 (8.4-10.2) mg/dL Adrenal panel 07/05/24 07/06/24 Range/Units 10:10 02:27 Sodium 136 L (137-145) mmol/L Potassium 3.8 (3.5-5.1) mmol/L Chloride 102 (98-107) mmol/L Carbon Dioxide 22 (22-30) mmol/L BUN 23 H (9-20) mg/dL Creatinine 1.46 H 1.45 H (0.66-1.25) mg/dL Glucose 103 H (74-99) mg/dL Calcium 9.6 (8.4-10.2) mg/dL Total Bilirubin 0.9 (0.2-1.3) mg/dL AST 19 (17-59) U/L ALT 20 (4-49) U/L Alkaline Phosphatase 68 (38-126) U/L Total Protein 6.6 (6.3-8.2) g/dL Albumin 3.8 (3.5-5.0) g/dL - Imaging Chest x-ray: report reviewed, image reviewed Assessment and Plan Assessment: Impression: Pleurisy post nephrostomy tube removal, right. Resolution of right pneumothorax. Recommendations: There is nothing further urologic that needs to be done at this point in time. I will make a follow-up appointment for the patient for report and ultrasound. From a urologic standpoint he can be discharged home
--- NOTE | 2024-07-06 10:42 | P.PN ---
Subjective Patient is seen in follow-up for acute kidney injury. Renal function stable. On room air. Denies chest pain or shortness of breath. Has been voiding. Vital signs are stable. General: No acute distress. HEENT: Head exam is unremarkable. LUNGS: No audible rhonchi or wheezes. HEART: Rate and Rhythm are regular. ABDOMEN: Nontender. Obese. EXTREMITITES: 1+ edema. Objective - Vital Signs Vital signs: Vital Signs Temp 98.7 F 07/06/24 07:10 Pulse 92 07/06/24 07:10 Resp 18 07/06/24 09:01 BP 154/84 07/06/24 07:10 Pulse Ox 93 L 07/06/24 08:22 FiO2 Intake & Output 07/05/24 07/06/24 07/06/24 18:59 06:59 18:59 Intake Total 790 536 Output Total 500 Balance 790 36 Weight 92.7 kg Intake: Oral 790 536 Output: Urine 300 Post Void Residual 200 Other: Voiding Method Urinal Urinal Urinal - Labs CBC & Chem 7: 07/06/24 02:27 07/06/24 02:27 Labs: Abnormal Lab Results - Last 24 Hours (Table) 07/05/24 07/05/24 07/05/24 Range/Units 02:43 10:10 10:30 WBC (4.50-10.00) 10*3/uL RBC (4.40-5.60) 10*6/uL Hgb (13.0-17.0) g/dL Hct (39.6-50.0) % Monocytes # (0.20-1.00) 10*3/uL Eosinophils # (0.04-0.35) 10*3/uL Sodium (137-145) mmol/L BUN (9-20) mg/dL Creatinine 1.46 H (0.66-1.25) mg/dL Glucose (74-99) mg/dL Cholesterol 201.00 H (0.00-200.00) mg/dL LDL Cholesterol, Calc 146.7 H (0.0-131.0) mg/dL HDL Cholesterol 33.30 L (40.00-60.00) mg/dL Urine Protein Trace H (Negative) Urine Blood Large H (Negative) Ur Leukocyte Esterase Moderate H (Negative) Urine RBC >182 H (0-5) /hpf Urine WBC 90 H (0-5) /hpf Urine Mucus Rare H (None) /hpf Ur Random Sodium (40-220) mmol/L 07/05/24 07/06/24 07/06/24 Range/Units 10:30 02:27 02:27 WBC 11.94 H (4.50-10.00) 10*3/uL RBC 3.71 L (4.40-5.60) 10*6/uL Hgb 11.8 L (13.0-17.0) g/dL Hct 33.9 L (39.6-50.0) % Monocytes # 1.62 H (0.20-1.00) 10*3/uL Eosinophils # 0.37 H (0.04-0.35) 10*3/uL Sodium 136 L (137-145) mmol/L BUN 23 H (9-20) mg/dL Creatinine 1.45 H (0.66-1.25) mg/dL Glucose 103 H (74-99) mg/dL Cholesterol (0.00-200.00) mg/dL LDL Cholesterol, Calc (0.0-131.0) mg/dL HDL Cholesterol (40.00-60.00) mg/dL Urine Protein (Negative) Urine Blood (Negative) Ur Leukocyte Esterase (Negative) Urine RBC (0-5) /hpf Urine WBC (0-5) /hpf Urine Mucus (None) /hpf Ur Random Sodium 27 L (40-220) mmol/L Assessment and Plan Plan: Assessment: 1. Acute kidney injury secondary to ATN secondary to infection and diuresis. Creatinine 0.7 on admission and peaked at 1.46 this admission -stable at 1.45 today. No hydronephrosis noted on ultrasound. UA with trace proteinuria and suggestive of UTI. 2. Recent staghorn calculus status post cystoscopy with percutaneous nephrostomy. Nephrostomy tube removed July 04, 2024. On antibiotics. 3. Tobacco abuse. 4. Volume overload. Plan: Add Lasix 40 mg once daily. Avoid nephrotoxins, including NSAIDs. Continue to monitor renal function and urine output. Maintain low-salt diet and fluid restriction.
--- NOTE | 2024-07-06 11:28 | P.PN ---
Subjective HISTORY OF PRESENT ILLNESS: This is a 63-year-old male with a past medical history significant for hypertension, lower extremity edema, and right renal calculus. 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 We have been asked to see the patient in consultation for CHF. Patient examined at the bedside. Patient was recently admitted to the hospital secondary to right renal staghorn calculus. He underwent cystoscopy, percutaneous nephrostomy, percutaneous nephrostolithotomy with ultrasound and nephrostomy tube insertion. Patient states yesterday he was at the urology office having his nephrostomy tube removed when he began to have shortness of breath. Patient was directed to come to the emergency room for further evaluation. The patient does report mild shortness of breath this morning. He denies any chest pain or pressure. Patient does report that he was prescribed diuretics and blood pressure medications on an outpatient basis which he used to take but stopped taking. He reports his blood pressure normally runs between 822514. He states he used to smoke 2 packs/day but now smokes approximately 1 pack/day. He reports having mild shortness of breath at baseline. The patient was started on IV Lasix and lisinopril. Per nursing he refused both of these medications this morning. Patient reports having an echoc ardiogram and a stress test performed at [facility] in [place] earlier this year which were both normal to his knowledge. DIAGNOSTICS: - EKG reveals sinus mechanism with no signs of acute ischemia. Low voltage QRS. - Chest xray low lung volumes with generalized hazy appearance which could r epresent atelectasis versus pulmonary edema - Chest CT: Right basilar atelectasis with airspace opacities correlate for superimposed infection. Correlate for aspiration. Trace right pleural effusion . Scattered groundglass opacities at the lungs correlate for atypical pneumonia. - Laboratory data: WBC 12.83. Hemoglobin 13.0. Platelet count 411. Sodium 137. Potassium 4.1. BUN 18. Creatinine 1.37. - Current home cardiac medications include none - No previous echocardiogram, stress test, or cardiac catheterization available for review 07/06/2024 Patient examined this morning at the bedside. Patient currently denies chest pain or pressure. She denies shortness of breath. Vital signs are stable. Creatinine today 1.45. PHYSICAL EXAM: VITAL SIGNS: Reviewed. GENERAL: Well-developed in no acute distress. HEENT: Head is normocephalic. Pupils are equal, round. Sclerae anicteric. Mucous membranes of the mouth are moist. Neck supple. No JVD or thyromegaly LUNGS: Respirations even and unlabored. Lungs essentially clear to auscultation bilaterally. HEART: Regular rate and rhythm. S1 and S2 heard. ABDOMEN: Soft. Nondistended. Nontender. EXTREMITIES: Normal range of motion. No clubbing or cyanosis. Peripheral pulses intact. No lower extremity edema NEUROLOGIC: Awake and alert. Oriented x 3. ASSESSMENT: Shortness of breath, right basilar atelectasis with possible superimposed infection per CT History of COPD Acute kidney injury Lower extremity edema without evidence of congestive heart failure Noncompliance with diuretics on an outpatient basis Noncompliance with antihypertensive medications on an outpatient basis History of right renal calculi, status post cystoscopy, percutaneous nephrostomy, percutaneous nephrostolithotomy with ultrasound and nephrostomy tube insertion History of small right apical pneumothorax Nicotine dependence, patient smokes 1 pack/day, down from 2 packs/day PLAN: Patient with lower extremity edema without evidence of congestive heart failure No need to repeat echocardiogram as this was performed recently at outside facility Continue oral diuretics Educated patient on importance of medication compliance Recommend low-sodium diet Patient is stable for discharge from a cardiac standpoint Further recommendations pending patient course Nurse practitioner note has been reviewed by physician. Signing provider agrees with the documented findings, assessment, and plan of care documented by [employer] SENIOR OFFICER as a scribe. Objective - Vital Signs Vital signs: Vital Signs Temp 98.7 F 07/06/24 07:10 Pulse 92 07/06/24 07:10 Resp 18 07/06/24 09:01 BP 154/84 07/06/24 07:10 Pulse Ox 93 L 07/06/24 08:22 FiO2 Intake & Output 07/05/24 07/06/24 07/06/24 18:59 06:59 18:59 Intake Total 790 536 Output Total 500 Balance 790 36 Weight 92.7 kg Intake: Oral 790 536 Output: Urine 300 Post Void Residual 200 Other: Voiding Method Urinal Urinal Urinal - Labs CBC & Chem 7: 07/06/24 02:27 07/06/24 02:27 Labs: Abnormal Lab Results - Last 24 Hours (Table) 07/05/24 07/05/24 07/05/24 Range/Units 02:43 10:30 10:30 WBC (4.50-10.00) 10*3/uL RBC (4.40-5.60) 10*6/uL Hgb (13.0-17.0) g/dL Hct (39.6-50.0) % Monocytes # (0.20-1.00) 10*3/uL Eosinophils # (0.04-0.35) 10*3/uL Sodium (137-145) mmol/L BUN (9-20) mg/dL Creatinine (0.66-1.25) mg/dL Glucose (74-99) mg/dL Cholesterol 201.00 H (0.00-200.00) mg/dL LDL Cholesterol, Calc 146.7 H (0.0-131.0) mg/dL HDL Cholesterol 33.30 L (40.00-60.00) mg/dL Urine Protein Trace H (Negative) Urine Blood Large H (Negative) Ur Leukocyte Esterase Moderate H (Negative) Urine RBC >182 H (0-5) /hpf Urine WBC 90 H (0-5) /hpf Urine Mucus Rare H (None) /hpf Ur Random Sodium 27 L (40-220) mmol/L 07/06/2407/06/ Range/Units 02:27 02:27 WBC 11.94 H (4.50-10.00) 10*3/uL RBC 3.71 L (4.40-5.60) 10*6/uL Hgb 11.8 L (13.0-17.0) g/dL Hct 33.9 L (39.6-50.0) % Monocytes # 1.62 H (0.20-1.00) 10*3/uL Eosinophils # 0.37 H (0.04-0.35) 10*3/uL Sodium 136 L (137-145) mmol/L BUN 23 H (9-20) mg/dL Creatinine 1.45 H (0.66-1.25) mg/dL Glucose 103 H (74-99) mg/dL Cholesterol (0.00-200.00) mg/dL LDL Cholesterol, Calc (0.0-131.0) mg/dL HDL Cholesterol (40.00-60.00) mg/dL Urine Protein (Negative) Urine Blood (Negative) Ur Leukocyte Esterase (Negative) Urine RBC (0-5) /hpf Urine WBC (0-5) /hpf Urine Mucus (None) /hpf Ur Random Sodium (40-220) mmol/L
[2024-07-06] MEDS: FUROSEMIDE 40 MG TAB PO SCH (11:32)
--- NOTE | 2024-07-06 11:48 | P.DS ---
Providers Date of admission: 07/04/24 13:26 Expected date of discharge: 07/06/24 Attending physician: Zack Snyder MD Consults: 07/04/24 15:56 Consult Physician Routine Consulting Provider: Jatin Smith Consult Reason/Comments: heart failure Do you want consulting provider notified?: Yes 07/05/24 09:20 Consult Physician Routine Consulting Provider: Roberta Ruiz Consult Reason/Comments: SOB, COPD Do you want consulting provider notified?: Yes 07/05/24 11:12 Consult Physician Routine Consulting Provider: Hernan Louis Consult Reason/Comments: PADILLA s/p nephrectomy tube removal Do you want consulting provider notified?: Yes Primary care physician: Lashell Nava MD Hospital Course: Discharge Diagnosis: Chemical pneumonitis Acute dyspnea/chest pain after nephrostomy tube removal Suspected chemical pneumonitis versus pneumonia Lower extremity edema without evidence of CHF Oliguric PADILLA COPD not in acute exacerbation Hypertension Hospital Course: Patient is a 63-year-old male with hypertension and COPD (no home oxygen) presenting with shortness of breath. Patient was at urology office status post percutaneous nephrostomy for staghorn calculus. After patient had PCN removed, he started to feel short of breath out of nowhere. Patient admits to mild shortness of breath leading up to today but not as worse as today. He was then suggested to come to the ED. Per patient's patient has had difficulty sleeping while laying down because he becomes short of breath. Prefers to be sleeping in a upright seated position. He was previously on antihypertensives for his hypertension but has stopped using that. He has been noncompliant with all his medications. Patient denies any fever, chills, chest pain, abdominal pain, urinary symptoms. EKG independent interpreted displaying sinus rhythm, low voltage, rate 83 bpm, QTc 375 MS CXR independently interpreted displaying haziness in both lung condon Chest CT displaying right basilar atelectasis with airspace opacities, trace right pleural effusion, evidence of pneumothorax, scattered groundglass opacities in the lungs correlate for atypical WBC 10.59, Hgb 13.2, platelet 427, INR 0.8, sodium 141, BUN 12, creatinine 0.74, proBNP 230 97.8 F, as needed 79, RR 20, BP 169/95, O2 saturation 92% on 2 L nasal cannula Patient is admitted for further evaluation of acute dyspnea status post nephrostomy tube removal and suspected acute heart failure exacerbation. Cardiology, pulmonology, nephrology, urology were all consulted on the case. Patient seen and evaluated by cardiology and determined there is no evidence of CHF based on previous echocardiogram. Was given a trial of Lasix for his edema. Patient had acute complaint of oliguria overnight with elevated creatinine and suggestion of acute PADILLA for which nephrology was consulted. Renal ultrasound was ordered which was found to be unremarkable and diuretics and nephrotoxic medication were placed on hold. Patient was also evaluated pulmonology and suggested that there may have been a possibility of urinary leak into the pleural space causing chemical/reactive pneumonitis he was then placed on IV empiric antibiotics. Urology evaluated and plan to follow-up outpatient. Patient's symptoms were ultimately relieved. He was cleared by all specialists. He is being discharged with oral Lasix as instructed to take it with his oral potassium. He was also placed on oral antibiotics and will finish his course upon discharge. Patient verbalizes understanding. He is to follow-up with nephrology, urology and his PCP. Patient can be discharged home today. Vital signs reviewed and stable. Physical examination: Vital signs reviewed General: non toxic, no distress, appears at stated age, normal weight Derm: no unusual rashes/lesions, warm Head: atraumatic, normocephalic, symmetric Eyes: EOMI, anicteric sclera, pupils equal round reactive to light ENT: Nose and ears atraumatic Neck: No cervical lymphadenopathy, trachea midline, supple Mouth: no lip lesion, mucus membranes moist Cardiovascular: S1S2 reg, no murmur, positive dorsalis pedis pulse bilateral, no edema Lungs: CTA bilateral, no rhonchi, no rales, no accessory muscle use Abdominal: soft, nontender to palpation, no guarding Ext: muscle strength 5 out of 5 in all 4 extremities grossly, 2+ bilateral lower extremity pitting edema Neuro: CN II-XI grossly intact, no gross focal neuro deficits Psych: Alert, oriented to person, place, and time A total of greater than 30 minutes of time were spent preparing this complex discharge summary. Patient was discharge on July 06, 2024 at 10:30 AM. Serafin Basilio MD PGY-1 IM Dictation was produced using [employer] software. please excuse any grammatical, word or spelling errors. I have seen and evaluated the patient today. Discussed with the resident and agree with the residents finding and plan as documented in the resident's note. Changes highlighted in blue font. Patient Condition at Discharge: Fair Plan - Discharge Summary Discharge Rx Participant: No New Discharge Prescriptions: New Cefdinir 300 mg PO Q12HR 4 Days #8 cap Furosemide [Lasix] 40 mg PO DAILY #60 tablet Continue HYDROcodone/APAP 5-325MG [Montreal 5-325] 1 tab PO Q4HR PRN 3 Days #18 tab PRN Reason: Pain ALPRAZolam [Xanax] 0.5 mg PO HS PRN #7 tab PRN Reason: Anxiety Discharge Medication List ALPRAZolam [Xanax] 0.5 mg PO HS PRN #7 tab 07/01/24 [Rx] HYDROcodone/APAP 5-325MG [Montreal 5-325] 1 tab PO Q4HR PRN 3 Days #18 tab 07/01/24 [Rx] Cefdinir 300 mg PO Q12HR 4 Days #8 cap 07/06/24 [Rx] Furosemide [Lasix] 40 mg PO DAILY #60 tablet 07/06/24 [Rx] Follow up Appointment(s)/Referral(s): Lashell Nava MD [Primary Care Provider] - 1-2 days (office close at time off discharge call for follow up appiontment) Hernan Louis DO [STAFF PHYSICIAN] - 08/03/24 11:20 am Patient Instructions/Handouts: Pneumonitis (DC), Leg Edema (ED), Low-Sodium Diet (DC) Activity/Diet/Wound Care/Special Instructions: Please follow up PCP, nephrology, and urology. Please take Lasix with 20 meq of Potassium. Discharge Disposition: HOME SELF-CARE
--- NOTE | 2024-07-06 13:47 | XR ---
EXAMINATION TYPE: XR chest 1V DATE OF EXAM: 07/06/2024 1:33 PM COMPARISON: Chest radiographs from 07/04/2024, CT chest 07/04/1932 TECHNIQUE: XR chest 1V Portable AP radiograph of the chest. CLINICAL INDICATION:Male, 63 years old with history of pneumonia; FINDINGS: Lungs/Pleura: Small right pleural effusions with increasing right basilar patchy consolidation. No pn eumothorax. Pulmonary vascularity: Unremarkable. Heart/mediastinum: Cardiomediastinal silhouette is enlarged and stable. Atherosclerotic calcificatio ns are seen in the aorta. Musculoskeletal: No acute osseous pathology. IMPRESSION: Small right pleural effusion with increasing right basilar patchy consolidation consistent with worse vivienne pneumonia. [facility], , 07/06/2024 1:45 PM
--- NOTE | 2024-07-06 17:06 | P.PN ---
Subjective Progress Note Date: 07/06/24 on today's evaluation of 07/06/2024, the patient is asymptomatic. Denies having any specific complaints. Remains on room air oxygen. A repeat chest x-ray was done and it shows a small right-sided pleural effusion and a patchy consolidation in the right lower lobe and the patient remains on IV Rocephin. Despite this ongoing abnormality, the patient is feeling well. Denies having any new complaints. The white cell count is 11.9 with a hemoglobin 11.8 and a platelet count of 345. BUN is 23 with a creatinine of 1.4. Sodium level is at 136. Diuretics were restarted by nephrology and the patient is currently on 40 mg of Lasix on a daily basis. Objective - Vital Signs Vital signs: Vital Signs Temp 98.7 F 07/06/24 07:10 Pulse 92 07/06/24 07:10 Resp 18 07/06/24 09:01 BP 154/84 07/06/24 07:10 Pulse Ox 93 L 07/06/24 08:22 FiO2 Intake & Output 07/05/24 07/06/24 07/06/24 18:59 06:59 18:59 Intake Total 790 536 200 Output Total 500 Balance 790 36 200 Weight 92.7 kg Intake: Oral 790 536 200 Output: Urine 300 Post Void Residual 200 Other: Voiding Method Urinal Urinal Urinal - Exam The patient appeared well nourished and normally developed. Vital signs as documented. Head exam is unremarkable. No scleral icterus or corneal arcus noted. Neck is without jugular venous distension, thyromegaly, or carotid bruits. Carotid upstrokes are brisk bilaterally. Lungs a diminished breath sounds bilateral lung with some limited bibasilar crackles. Cardiac exam reveals the PMI to be normally sized and situated. Rhythm is regular. First and second heart sounds normal. No murmurs, rubs or gallops. Abdominal exam reveals normal bowel sounds, no masses, no organomegaly and no aortic enlargement. Extremities are showing edema in lower extremities, +1 and both femoral and pedal pulses are normal. Examination of the skin revealed no evidence of significant rashes, suspicious appearing nevi or other concerning lesions. Neurologically, the patient is awake and alert and the patient does not have any focal neurological deficit. Cranial nerves are essentially intact. - Labs CBC & Chem 7: 07/06/24 02:27 07/06/24 02:27 Labs: Abnormal Lab Results - Last 24 Hours (Table) 07/05/24 07/06/24 07/06/24 Range/Units 10:30 02:27 02:27 WBC 11.94 H (4.50-10.00) 10*3/uL RBC 3.71 L (4.40-5.60) 10*6/uL Hgb 11.8 L (13.0-17.0) g/dL Hct 33.9 L (39.6-50.0) % Monocytes # 1.62 H (0.20-1.00) 10*3/uL Eosinophils # 0.37 H (0.04-0.35) 10*3/uL Sodium 136 L (137-145) mmol/L BUN 23 H (9-20) mg/dL Creatinine 1.45 H (0.66-1.25) mg/dL Glucose 103 H (74-99) mg/dL Ur Random Sodium 27 L (40-220) mmol/L Microbiology - Last 24 Hours (Table) 07/05/24 10:30 Urine Culture - Final Urine,Voided Assessment and Plan Plan: Acute dyspnea/chest pain immediately post removal of nephrostomy tube on 07/04/2024. Acute right lower lobe airspace disease with trace right-sided pleural effusion and patchy groundglass infiltrates bilaterally. Consider the possibility of urinary leak into the pleural space causing a chemical/reactive pneumonia. Noted the urine on 06/21/2024 was not infected. Staghorn right-sided renal calculus post cystoscopy, percutaneous nephrostomy nephrolithotomy, discharged from the hospital on 07/01/2024 Small right-sided pneumothorax, recovered on a chest x-ray on 07/01/2024, likely iatrogenic post urologic intervention COPD Acute kidney injury, likely due to use of nonsteroidal anti-inflammatory medication/Toradol in addition to diuretics. Noted the patient was also taking JEET inhibitor's. Plan Noted abnormalities on today's chest x-ray. There is some interval worsening in the right lower lobe consolidation. Nevertheless, the patient is asymptomatic and on room air oxygen he is adamant on going home. After discharge being planned, I recommend a course of antibiotics to be completed on outpatient basis with a subsequent follow-up chest x-ray. The patient was instructed to call back if there is any worsening shortness of breath. His creatinine is stable and the patient is currently on Lasix. The patient was also seen by nephrology and urology and nephrology. The echocardiogram that was done on 07/05/2024 showed a preserved LV function without any acute abnormalities. The ultrasound of the kidneys also showed no evidence of any hydronephrosis and there is a nonobstructive calculus involving the left kidney. The bladder wall remains distended. If discharge being planned, recommend a course of antibiotics with close follow-up and repeat chest x-ray within the next 4 to 6 days.
== END 2024-07-06 13:40 | disposition home or self-care (01) | DRG 205 ==
LOC: EC 10:28 → 4SSUR 13:26
PROVIDERS: ADMIT Internal Medicine; ATTEND Internal Medicine
DX: J68.0 Bronchitis and pneumonitis due to chemicals, gases, fumes and vapors (principal); N17.0 Acute kidney failure with tubular necrosis; I11.0 Hypertensive heart disease with heart failure; I50.9 Heart failure, unspecified; J98.11 Atelectasis; N39.0 Urinary tract infection, site not specified; T50.2X5A Adverse effect of carbonic-anhydrase inhibitors, benzothiadiazides and other diuretics, initial encounter; Z87.440 Personal history of urinary (tract) infections; Z79.82 Long term (current) use of aspirin; Z79.899 Other long term (current) drug therapy; Z87.442 Personal history of urinary calculi; Z90.5 Acquired absence of kidney; Z91.148 Patient's other noncompliance with medication regimen for other reason; Z88.1 Allergy status to other antibiotic agents; Z88.0 Allergy status to penicillin
CPT/HCPCS: 36415; 71045; 71046; 71250; 76770; 80048; 80053; 80061; 81001; 82575; 83036; 83735; 83880; 84300; 84540; 85025; 85610; 85730; 87086; 93005; 93306; 94640; 94760; 96374; 96375; 96376; 99285

== ENCOUNTER → 2024-07-25 | Outpatient (CLI) | payer BC ==
[2024-07-25 15:32] LABS: Blood Urea Nitrogen 10.8 mg/dL (9.0-27.0)
== END | disposition home or self-care (01) ==
LOC: LABWHC1 11:06
PROVIDERS: ATTEND Urology
DX: N20.0 Calculus of kidney (principal)
CPT/HCPCS: 36415; 82565; 84520